=== PATIENT | male | born 1935 | race Caucasian/White ===

== ENCOUNTER 2017-01-05 19:30 | Inpatient (IN) ==
[~2017-01-05 19:30] MED LIST: ALBUTEROL 2.5 MG/3 ML NEB RESP TX PRN
--- NOTE | 2017-01-05 20:07 | XRay Report ---
XR chest 1V portable Indication: SOB Comparison: Chest x-ray dated October 20, 2016 Technique: Single frontal view of the chest. Findings: Endotracheal tube tip proximally 2.7 cm above the sydnie. Continued cardiomegaly status post sternotomy. Diffuse hazy bilateral pulmonary opacification suspicious for pulmonary edema or pneumonia. Small left pleural effusion. Suspect small right layering pleural fluid. Constellation of findings favors CHF. Visualized osseous and surrounding soft tissue structures appear grossly unchanged. IMPRESSION: As above. PROCEDURE INTERPRETED AT [facility] DEPARTMENT OF RADIOLOGY Final Report Signed by: Dr Robert Trivedi
[2017-01-05] MEDS ORDERED: SODIUM CHLORIDE 0.9% 2,700 ML IV ONE ×2 (20:39)
[2017-01-05] MEDS ORDERED: GLUCAGON 1 MG VIAL IM PRN (20:39)
[2017-01-05] MEDS ORDERED: DEXTROSE 50% 25 GM/50 ML VIAL IV PRN (20:39)
[2017-01-05 20:42] LABS: ABG Base Excess -3.1 MMOL/L (-2.5-2.5); ABG HCO3 21.8 MMOL/L (20-26); ABG Oxygen Saturation 99.2 % (95-100); ABG PCO2 44.8 MM HG (35-48); ABG PH 7.322 (7.35-7.45); ABG TCO2 20.2 MMOL/L (23-27)
[2017-01-05 20:59] LABS: Basophils % 0.2 % (0.0-0.8); Eosinophils % 0.3 % (0.00-10.9); Hematocrit 43.5 VOL% (42.0-52.0); Hemoglobin 14.1 GM/DL (14.0-18.0); Immature Granulocytes % 0.4 %; Immature Granulocytes Absolute 0.05 #; Lymphocytes # 0.4 10*3/uL (1.4-4.0); Lymphocytes % 3.9 % (21.2-54.2); Mean Corpuscular HGB Conc 32.4 GM/DL (32-36); Mean Corpuscular Hemoglobin 29 PG (27-34); Mean Corpuscular Volume 90.8 FL (87-102); Mean Platelet Volume 12.9 FL (9.6-12.0); Monocytes # 0.7 10*3/uL (0.11-0.8); Monocytes % 6.4 % (1.7-12.7); Neutrophils # 9.9 10*3/uL (1.4-7.4); Neutrophils % 88.8 % (38.7-73.9); Platelet Count 222 T/CUMM (130-400); Red Blood Count 4.79 MC/CUMM (3.8-5.5); Red Cell Distribution Width 15.6 % (9.3-17.3); White Blood Count 11.2 T/CUMM (4-12)
[2017-01-05] MEDS: PROPOFOL 1,000 MG/100 ML BOTTLE IV SCH (21:00)
[2017-01-05] MEDS: NOREPINEPHRINE 8 MG in SODIUM CHLORIDE 0.9% 242 ML IV SCH (21:00)
[2017-01-05] MEDS: PIPERACILLIN/TAZOBACTAM 3,375 MG in SODIUM CHLORIDE 0.9% 100 ML IV SCH (21:18)
[2017-01-05] MEDS: FAMOTIDINE 20 MG/2 ML VIAL IV SCH (21:18)
[2017-01-05] MEDS: ENOXAPARIN 40 MG/0.4 ML SYRINGE SUBCUT SCH (21:19)
--- NOTE | 2017-01-05 21:24 | Hospitalist History & Physical ---
Assessment and Plan (1) Septic shock Status: Acute Current Visit: Yes (2) Aspiration pneumonia Status: Acute Current Visit: Yes (3) Respiratory failure Status: Acute Current Visit: Yes (4) Hypertension Status: Chronic Current Visit: No (5) Seizure disorder Status: Chronic Current Visit: No (6) Type I diabetes mellitus Status: Acute Current Visit: No Qualifiers: Diabetes mellitus complication status: with neurologic complications Diabetes mellitus complication detail: with polyneuropathy Qualified Code(s): E10.42 - Type 1 diabetes mellitus with diabetic polyneuropathy (7) Pulmonary hypertension Status: Chronic Assessment and plan: Patient appears to be in septic shock. I am going to bolus him with IV fluids. Broad old antibiotic coverage including Levaquin and Zosyn. I suspect that he has had a drug interaction and aspirated. Will get pulmonary involved and they can help guide the ventilator. Pressors as needed. Should be able to restart some home medications tomorrow. Patient is hypotensive I will switch him over from dopamine to Levophed. I discussed CODE STATUS with his . She wants us to aggressively treat him but not to code him. Since he is on pressors and is on the ventilator I am going to make him a DO NOT RESUSCITATE at this point. But my plans would be to increase the pressors if needed but no CPR will be given to the patient. Current Visit: No History of Present Illness Chief complaint: Transfer from outside facility History of present illness: Mr. 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 Patient is on multiple medications. He has been on Lyrica Embeda Tegretol and oxycodone for breakdown pain said this was the first time that he really got started on all these medications because he ran out of his Embeda. She said this morning he was very hard to wake up. She finally did get him to wake up and he wanted to eat. She got him some food. And he just was not acting right. He did not 8 at that time said he was not hungry. Patient's checked on him later and found him blue and pale in the chair. He could not talk or open up his eyes. She takes his blood pressure and it was systolic in the 50s. EMS was called. It appeared he had vomited on himself. When EMS got there they gave him some fluids and propped him up and the color returned. He was taken to [facility]. Apparently at some point he stopped breathing. And had to be intubated at their facility. I accept the patient as transfer from the emergency room. Home Medications Medication Instructions Recorded Confirmed Type Allopurinol [Zyloprim] 300 mg PO DAILY 02/17/15 10/16/16 History Gabapentin Cap/Tab [Neurontin 300 mg PO 0900,1500 02/17/15 10/16/16 History Cap/Tab] Gabapentin Cap/Tab [Neurontin 900 mg PO BEDTIME 02/17/15 10/16/16 History Cap/Tab] Ramipril [Altace] 10 mg PO DAILY 02/17/15 10/16/16 History Tamsulosin [Flomax] 0.4 mg PO BID 02/17/15 10/16/16 History levETIRAcetam TAB [Keppra Tab] 750 mg PO BID 02/17/15 10/16/16 History Hydrocortisone 2.5% Cream 1 applic TOP BID PRN #0 cream 02/21/15 10/16/16 Rx hydrOXYzine HCL TAB [Atarax Tab] 25 mg PO Q6H PRN #0 tablet 02/27/15 10/16/16 Rx Insulin Lispro Prot/Lisp 75/25 40 unit SUBCUT QAM 10/16/16 10/16/16 History [HumaLOG Mix 75/25] Insulin Lispro Prot/Lisp 75/25 50 unit SUBCUT QPM 10/16/16 10/16/16 History [HumaLOG Mix 75/25] Levothyroxine Tab [Synthroid Tab] 88 mcg PO DAILY@0700 10/16/16 10/16/16 History Morphine Sulfate/Naltrexone 1 capsule PO BID 10/16/16 10/16/16 History [Embeda 80/3.2] Omeprazole [Prilosec] 40 mg PO DAILY 10/16/16 10/16/16 History diphenhydrAMINE CAP [Benadryl Cap] 50 mg PO Q6H PRN 10/16/16 10/16/16 History oxyCODONE IR [Roxicodone] 15 mg PO Q8H 10/16/16 10/16/16 History Cefdinir [Omnicef] 300 mg PO BID #4 capsule 10/21/16 Rx Doxycycline Hyclate Cap 100 mg PO BID #4 capsule 10/21/16 Rx [Vibramycin Cap] Furosemide Tab [Lasix Tab] 20 mg PO DAILY #30 tablet 10/21/16 Rx Allergies Allergy/AdvReac Type Severity Reaction Status Date / Time codeine Allergy Unknown/Unable Verified 02/17/15 04:40 to obtain Sulfa (Sulfonamide Allergy Unknown/Unable Verified 01/05/17 20:12 Antibiotics) to obtain Medical,Surgical,& Family Hx - Medical History Cardio: History of: Cardiac Dysrhythmia (atrial fibrillation - spouse denies), CAD, Hypertension, [place] Endocrine: History of: Diabetes Mellitus (IDDM), Thyroid Disorder Comment Only: Endocrine Problems (Neuropathy) Rheumatology: History of;: Gout Respiratory: History of: Obstructive Sleep Apnea (wears CPAP) Genitourinary: History of: Prostate Problems Gastrointestinal: History of: GERD Musculoskeletal: History of: Back/Neck Problems (Bad neck) Other: History of: Miscellaneous Medical Problems (neuropathy, gout) - Surgical History Abdominal Surgeries: Surgical HX of: Abdominal Surgery, Cholecystectomy Orthopedic Surgeries: Surgical HX of;: Orthopedic Surgery - Family History Family History: Reports;: Family Cancer, Family Hypertension - Social History Smoking Status: Unknown if ever smoked ROS unobtainable: due to endotracheal tube Exam - Constitutional General appearance: normal weight - Head Head exam: Present: normal inspection - Eye Pupils: Present: GUANACO (Sluggish) - ENT ENT exam: Present: other (ET tube in place) - Neck Neck exam: Present: normal inspection - Respiratory Respiratory exam: Present: rhonchi - Cardiovascular Cardiovascular exam: Present: tachycardia - GI/Abdominal GI/Abdominal exam: Present: hypoactive bowel sounds - Extremities Exam Extremities exam: Present: normal inspection - Back Exam Back exam: Present: normal inspection - Neurological Exam Neurological exam: Present: other (Sedated on the vent) - Skin Skin exam: Present: normal color Results - Labs CBC & BMP: 01/05/17 20:32
[2017-01-05 21:26] LABS: Albumin 3.7 G/DL (3.4-5.0); Bilirubin,Total 1.2 MG/DL (0.2-1.0); Calcium 9.6 MG/DL (8.5-10.1); Magnesium 2.3 MG/DL (1.8-2.4); Osmolality,Calculated 286.7 MOS/KG (273-304); Potassium 3.6 MMOL/L (3.5-5.1); Total Protein 7.9 G/DL (6.4-8.3)
[2017-01-05] MEDS: SODIUM CHLORIDE 0.9% 1,000 ML IV SCH (21:28)
[2017-01-05 21:58] LABS: Band Neutrophils 1 % (0-10); Lymphocytes 2 % (20-55); Platelet Estimate Adequate; Segmented Neutrophils 90 % (50-85); Total Cells Counted 100
[2017-01-05 22:32] LABS: Apearance,Urine CLEAR (Clear); Bilirubin,Urine Negative (Negative); Blood, Urine Moderate mg/dL (Negative); Glucose,Urine (UA) Negative (Negative); Hyaline Casts,Urine 12 /LPF (0-3); Ketones,Urine 5 mg/dL (Negative); Nitrite,Urine Negative (Negative); Protein,Urine Negative; RBC,Urine 23 /HPF (0-4); Urine Color Yellow (Yellow); Urine Specific Gravity 1.009 (1.001-1.035); Urine Urobilinogen < 2.0 EU/DL (0.2-1.0); WBC,Urine 3 /HPF (0-6)
[2017-01-06] MEDS: INSULIN REGULAR 100 UNIT/ML SUBCUT SCH ×6 (01:09→23:44)
[2017-01-06 03:20] LABS: Pt O2 Delivery Device Ventilator
[2017-01-06 03:21] LABS: ABG Base Excess -2.6 MMOL/L (-2.5-2.5); ABG HCO3 22.3 MMOL/L (20-26); ABG Oxygen Saturation 99.8 % (95-100); ABG PCO2 33.5 MM HG (35-48); ABG PH 7.411 (7.35-7.45)
[2017-01-06 04:17] LABS: Basophils % 0.1 % (0.0-0.8); Hematocrit 40.7 VOL% (42.0-52.0); Immature Granulocytes % 0.2 %; Immature Granulocytes Absolute 0.02 #; Lymphocytes # 0.6 10*3/uL (1.4-4.0); Lymphocytes % 6.1 % (21.2-54.2); Mean Corpuscular HGB Conc 31.9 GM/DL (32-36); Mean Corpuscular Hemoglobin 29 PG (27-34); Mean Corpuscular Volume 91.5 FL (87-102); Mean Platelet Volume 12.4 FL (9.6-12.0); Monocytes # 0.7 10*3/uL (0.11-0.8); Monocytes % 7.5 % (1.7-12.7); Neutrophils # 8.3 10*3/uL (1.4-7.4); Neutrophils % 86.1 % (38.7-73.9); Platelet Count 182 T/CUMM (130-400); Red Blood Count 4.45 MC/CUMM (3.8-5.5); Red Cell Distribution Width 15.8 % (9.3-17.3); White Blood Count 9.7 T/CUMM (4-12)
[2017-01-06 04:49] LABS: Band Neutrophils 3 % (0-10); Bilirubin,Total 1.2 MG/DL (0.2-1.0); Calcium 9.1 MG/DL (8.5-10.1); Lymphocytes 9 % (20-55); Myelocytes 1 %; Osmolality,Calculated 290.3 MOS/KG (273-304); Segmented Neutrophils 84 % (50-85); Total Protein 6.6 G/DL (6.4-8.3)
[2017-01-06 04:50] LABS: Elliptocytes Few; Ovalocytes 1+
[2017-01-06 04:51] LABS: Platelet Estimate Normal; Total Cells Counted 100
[2017-01-06] MEDS: SODIUM CHLORIDE 0.9% 1,000 ML IV SCH ×2 (05:59→16:45)
[2017-01-06] MEDS: PIPERACILLIN/TAZOBACTAM 3,375 MG in SODIUM CHLORIDE 0.9% 100 ML IV SCH ×3 (05:59→20:21)
[2017-01-06] MEDS ORDERED: NOREPINEPHRINE 4 MG/4 ML VIAL IV ONE ×2 (06:51→06:52)
[2017-01-06] MEDS: NOREPINEPHRINE 8 MG in SODIUM CHLORIDE 0.9% 242 ML IV SCH ×2 (07:00→21:00)
--- NOTE | 2017-01-06 07:45 | Pulmonology Consult Note ---
Assessment and Plan (1) Hypertension Status: Chronic Assessment and plan: The patient has had labile blood pressure but it is a little more stable now. He is still requiring low-dose Levophed. Current Visit: No (2) Type I diabetes mellitus Status: Acute Assessment and plan: The patient has severe diabetes with diabetic neuropathy. Current Visit: No Qualifiers: Diabetes mellitus complication status: with neurologic complications Diabetes mellitus complication detail: with polyneuropathy Qualified Code(s): E10.42 - Type 1 diabetes mellitus with diabetic polyneuropathy (3) Septic shock Status: Acute Assessment and plan: Patient is getting fluids and antibiotics at the present time. Current Visit: Yes (4) Aspiration pneumonia Status: Acute Assessment and plan: Patient's oxygenation is better but he does have bilateral infiltrates. Will continue antibiotic therapy. Current Visit: Yes (5) Respiratory failure Status: Acute Assessment and plan: The patient is on the ventilator with respiratory failure. Will lower his FiO2 and continue support Current Visit: Yes History of Present Illness Chief complaint: Ventilator management History of present illness: Mr. Jimenez is a 81 year old white male that is followed by Dr. Soria in [place]. The patient has a history of heart disease and has had previous heart surgery. He has hypertension and diabetes and severe diabetic neuropathy. He wears CPAP at night for sleep apnea. He has had a lot of chronic pain issues. Yesterday apparently he was very hard to arouse and has had problems like this before. He has had a labile blood pressure. Yesterday he was poorly responsive and looks like he may have vomited and aspirated. He was taken to [facility] and was intubated. He is now transferred and admitted to the ICU. He has been requiring Levophed and is getting a large volume of fluid Home Medications Medication Instructions Recorded Confirmed Type Allopurinol [Zyloprim] 300 mg PO DAILY 02/17/15 01/05/17 History Gabapentin Cap/Tab [Neurontin 300 mg PO 0900,1500 02/17/15 10/16/16 History Cap/Tab] Gabapentin Cap/Tab [Neurontin 900 mg PO BEDTIME 02/17/15 10/16/16 History Cap/Tab] Ramipril [Altace] 2.5 mg PO DAILY 02/17/15 01/05/17 History Tamsulosin [Flomax] 0.4 mg PO BID 02/17/15 01/05/17 History levETIRAcetam TAB [Keppra Tab] 750 mg PO BID 02/17/15 01/05/17 History Hydrocortisone 2.5% Cream 1 applic TOP BID PRN #0 cream 02/21/15 01/05/17 Rx hydrOXYzine HCL TAB [Atarax Tab] 25 mg PO Q6H PRN #0 tablet 02/27/15 01/05/17 Rx Insulin Lispro Prot/Lisp 75/25 40 unit SUBCUT QAM 10/16/16 01/05/17 History [HumaLOG Mix 75/25] Insulin Lispro Prot/Lisp 75/25 50 unit SUBCUT QPM 10/16/16 01/05/17 History [HumaLOG Mix 75/25] Levothyroxine Tab [Synthroid Tab] 75 mcg PO DAILY@0700 10/16/16 01/05/17 History Morphine Sulfate/Naltrexone 1 capsule PO BID 10/16/16 01/05/17 History [Embeda 80/3.2] Omeprazole [Prilosec] 40 mg PO DAILY 10/16/16 01/05/17 History diphenhydrAMINE CAP [Benadryl Cap] 50 mg PO Q6H PRN 10/16/16 10/16/16 History oxyCODONE IR [Roxicodone] 20 mg PO TID 10/16/16 01/05/17 History Cefdinir [Omnicef] 300 mg PO BID #4 capsule 10/21/16 Rx Doxycycline Hyclate Cap 100 mg PO BID #4 capsule 10/21/16 Rx [Vibramycin Cap] Furosemide Tab [Lasix Tab] 80 mg PO DAILY 01/05/17 01/05/17 History Pregabalin [Lyrica] 75 mg PO BID 01/05/17 01/05/17 History carBAMazepine [Carbamazepine] 200 mg PO BID 01/05/17 01/05/17 History Allergies Allergy/AdvReac Type Severity Reaction Status Date / Time codeine Allergy Unknown/Unable Verified 02/17/15 04:40 to obtain Sulfa (Sulfonamide Allergy Unknown/Unable Verified 01/05/17 20:12 Antibiotics) to obtain ROS unobtainable: due to endotracheal tube (Patient is on the ventilator and unable to give a history.) Exam (Pulmonay) H&P - Constitutional Vitals: Period Temp Pulse Resp BP Sys/Crocker Pulse Ox Last 24 Hr 97.1 F-97.6 F 60-131 14-42 74-141/43-88 96-100 General appearance: normal weight, no acute distress (Patient is sedated on the ventilator.) - Head Head exam: Present: normal inspection, normocephalic - Eye Eye exam: Present: EOMI. Absent: scleral icterus Pupils: Present: GUANACO - ENT ENT exam: Present: normal exam, other (ET tube is in good position) - Neck Neck exam: Present: normal inspection. Absent: lymphadenopathy, thyromegaly - Respiratory Respiratory exam: Present: rhonchi, other (He has good breath sounds bilaterally with some rhonchi.) - Cardiovascular Cardiovascular exam: Present: regular rate and rhythm, tachycardia. Absent: gallop, systolic murmur - GI/Abdominal GI/Abdominal exam: Present: normal bowel sounds, tenderness (He does have some mild abdominal tenderness to palpation.), soft. Absent: organomegaly - Extremities Exam Extremities exam: Absent: calf tenderness, edema - Neurological Exam Neurological exam: Present: altered (He is mainly sedated at present.) - Psychiatric Psychiatric exam: Absent: anxious - Skin Skin exam: Present: warm, dry Medical,Surgical,& Family Hx - Medical History Cardio: History of: Cardiac Dysrhythmia (atrial fibrillation - spouse denies), CAD, Hypertension, [place], Pacemaker (Battery replaced 2014) Neurology: History of: Cerebrovascular Accident, Seizures Endocrine: History of: Diabetes Mellitus (IDDM), Thyroid Disorder Comment Only: Endocrine Problems (Neuropathy) Rheumatology: History of;: Gout Respiratory: History of: Obstructive Sleep Apnea (wears CPAP) Genitourinary: History of: Prostate Problems Gastrointestinal: History of: GERD, GI Problems (Esophagus sx in 1991 [facility]) Musculoskeletal: History of: Back/Neck Problems (Bad neck) Other: History of: Miscellaneous Medical Problems (neuropathy, gout) - Surgical History Cardiac Surgeries: Sugical HX of: Cardiac Catheterization (Stents in 1999), Cardiac Surgery (Quadruple bypass 2005) Abdominal Surgeries: Surgical HX of: Abdominal Surgery, Cholecystectomy Orthopedic Surgeries: Surgical HX of;: Orthopedic Surgery - Family History Family History: Reports;: Family Cancer, Family Hypertension - Social History Smoking Status: Unknown if ever smoked Frequency of Alcohol Use: None Type of Drug Use: None Results - Labs CBC & BMP: 01/06/17 03:58 01/06/17 03:58 Labs: PO2 is 299 with a PCO2 of 33 and a pH of 7.41 - Diagnostic Findings Procedure: Chest x-ray: image reviewed by me, report reviewed by me (Chest x- ray does suggest bibasilar pneumonia )
[2017-01-06] MEDS: oxyCODONE IR 5 MG TABLET PO PRN ×2 (07:48→13:35)
--- NOTE | 2017-01-06 08:04 | XRay Report ---
History is short of breath, ventilator management Comparison 01/05/2017 The heart is enlarged. ET tube tip is 1.5 cm above the sydnie. Pacemaker present with scoliotic prior median sternotomy. NG tube traverses the chest There has been development of a small, just under 10% pneumothorax on the right. There is question of an anterior pneumothorax in the left as well The diffuse pulmonary edema is slightly improved in the interval. There remains more focal consolidation and effusion obscuring the left diaphragm. Findings personally discussed with the patient's nurse at 8:00 AM Impression: 1. Interval development of a small right pneumothorax 2. Suspected anterior pneumothorax in the left 3. slight improvement with continued diffuse pulmonary edema PROCEDURE INTERPRETED AT [facility] DEPARTMENT OF RADIOLOGY Final Report Signed by: Dr. Sandy Obrien
[2017-01-06] MEDS: FAMOTIDINE 20 MG/2 ML VIAL IV SCH ×2 (09:15→20:21)
[2017-01-06] MEDS: PROPOFOL 1,000 MG/100 ML BOTTLE IV SCH (09:16)
--- NOTE | 2017-01-06 12:18 | Ultrasound Report ---
Ultrasound of the right upper quadrant. Indication: Generalized abdominal pain. Right upper quadrant pain. The liver is normal in size. The parenchymal echogenicity is normal. No focal liver lesions are identified. The gallbladder has been removed. The common duct measures 3.6 mm. Portions of the pancreas are secured by bowel gas. Visualized portions appear normal. The right kidney has a normal appearance. There is a right-sided pleural effusion. Impression: Right pleural effusion. Otherwise, the exam is unremarkable. PROCEDURE INTERPRETED AT [facility] DEPARTMENT OF RADIOLOGY Final Report Signed by: Dr. Jessie Obrien
--- NOTE | 2017-01-06 12:32 | XRay Report ---
History is follow-up pneumothorax Chest one view 01/06/2017 at 12:03 PM A small less than 10% right pneumothorax remains but is slightly improved in the interval. The previously question anterior pneumothorax in the left is a less apparent on the current film The cardiomegaly and pacemaker remains. ET tube tip remains at T5 Moderate diffuse bilateral pulmonary opacities and mildly more focal consolidation left lower lobe again seen with underlying small effusions Impression: Interval decrease in size of the small right apical pneumothorax PROCEDURE INTERPRETED AT [facility] DEPARTMENT OF RADIOLOGY Final Report Signed by: Dr. Sandy Obrien
--- NOTE | 2017-01-06 12:34 | XRay Report ---
History is abdominal pain Mild air scattered in the bowel without small bowel loops measuring up to 2 cm. No organomegaly seen Pelvic phleboliths present Clips present in the upper abdomen. NG tube tip is just past the GE junction. Impression: 1. Presumed NG tube the tip just past the GE junction 2. Nonspecific bowel gas pattern PROCEDURE INTERPRETED AT [facility] DEPARTMENT OF RADIOLOGY Final Report Signed by: Dr. Sandy Obrien
--- NOTE | 2017-01-06 15:13 | Hospitalist Progress Note ---
Assessment and Plan - Time spent with patient Time spent with patient: Greater than 30 minutes (1) Aspiration pneumonia Status: Acute Assessment and plan: Continue IV antibiotics and ventilator support. Pulmonary following. Current Visit: Yes Qualifiers: Aspiration pneumonia type: due to vomit Laterality: bilateral Lung location: lower lobe of lung Qualified Code(s): J69.0 - Pneumonitis due to inhalation of food and vomit (2) Respiratory failure Status: Acute Assessment and plan: Continue ventilatory support. Pulmonary following Current Visit: Yes Qualifiers: Chronicity: acute Respiratory failure complication: hypoxia Qualified Code(s): J96.01 - Acute respiratory failure with hypoxia (3) Septic shock Status: Acute Assessment and plan: IV fluids and IV antibiotics initiated. Elevated lactic acid level noted Current Visit: Yes (4) Neuropathy Status: Chronic Assessment and plan: Continue home medications. Current Visit: Yes (5) Cerebellar ataxia Status: Chronic Current Visit: Yes (6) Debility Status: Chronic Current Visit: No (7) Type 2 diabetes mellitus Status: Chronic Current Visit: Yes (8) Hypertension Status: Chronic Current Visit: Yes Qualifiers: Hypertension type: essential hypertension Qualified Code(s): I10 - Essential (primary) hypertension (9) Seizure disorder Status: Chronic Current Visit: No (10) DAV (acute kidney injury) Status: Acute Assessment and plan: Secondary to sepsis and hypotension. Current Visit: Yes Hospitalist: Subjective Interval history: Patient seen and examined. No acute events overnight. Case discussed with nursing staff. Labs reviewed. The case was discussed with the patient's and [id number] at the bedside at length. Mr. Jimenez is a 81 year old white male that is followed by Dr. Soria in [place]. The patient has a history of heart disease and has had previous heart surgery. He has hypertension and diabetes and severe diabetic neuropathy. He wears CPAP at night for sleep apnea. He has had a lot of chronic pain issues. Yesterday apparently he was very hard to arouse and has had problems like this before. He has had a labile blood pressure. Yesterday he was poorly responsive and looks like he may have vomited and aspirated. He was taken to [facility] and was intubated. He is now transferred and admitted to the ICU. He has been requiring Levophed and is getting a large volume of fluid Exam - Constitutional Vitals: Period Temp Pulse Resp BP Sys/Crocker Pulse Ox Last 24 Hr 97.1 F-99.1 F 60-131 14-42 72-141/43-88 96-100 Exam: General appearance: normal weight, no acute distress (Patient is sedated on the ventilator.) - Head Head exam: Present: normal inspection, normocephalic - Eye Eye exam: Present: EOMI. Absent: scleral icterus Pupils: Present: GUANACO - ENT ENT exam: Present: normal exam, other (ET tube is in good position) - Neck Neck exam: Present: normal inspection. Absent: lymphadenopathy, thyromegaly - Respiratory Respiratory exam: Present: rhonchi, other (He has good breath sounds bilaterally with some rhonchi.) - Cardiovascular Cardiovascular exam: Present: regular rate and rhythm, tachycardia. Absent: gallop, systolic murmur - GI/Abdominal GI/Abdominal exam: Present: normal bowel sounds, tenderness (He does have some mild abdominal tenderness to palpation.), soft. Absent: organomegaly - Extremities Exam Extremities exam: Absent: calf tenderness, edema - Neurological Exam Neurological exam: Present: altered (He is mainly sedated at present.) - Psychiatric Psychiatric exam: Unable to obtain secondary to patient's sedation - Skin Skin exam: Present: warm, dry Results - Labs CBC & BMP: 01/06/17 03:58 01/06/17 03:58 Lab Results: I have reviewed the past 24 hour labs - Diagnostic Findings Procedure: Chest x-ray: image reviewed by me, report reviewed by me, KUB x-ray: image reviewed by me, report reviewed by me, Ultrasound: report reviewed by me
[2017-01-06] MEDS ORDERED: hydrOXYzine HCL 25 MG TABLET PO PRN (15:37)
[2017-01-06] MEDS ORDERED: HYDROCORTISONE 2.5% CREAM 30 GM TUBE TOP PRN (15:37)
[2017-01-06] MEDS: LEVOFLOXACIN INJ 750 MG in PREMIX 1 EACH IV SCH (18:38)
[2017-01-06] MEDS ORDERED: INSULIN LISPRO PROTAMINE/LISPRO 75/25 100 UNIT/ML SUBCUT SCH (19:00)
[2017-01-06] MEDS ORDERED: ONDANSETRON 4 MG/2 ML VIAL IV PRN (19:49)
[2017-01-06] MEDS: GABAPENTIN 300 MG CAPSULE PO SCH (20:19)
[2017-01-06] MEDS: PREGABALIN 75 MG CAPSULE PO SCH (20:20)
[2017-01-06] MEDS: levETIRAcetam 250 MG TABLET PO SCH (20:20)
[2017-01-06] MEDS: oxyCODONE IR 5 MG TABLET PO SCH (20:20)
[2017-01-06] MEDS: ENOXAPARIN 40 MG/0.4 ML SYRINGE SUBCUT SCH (20:21)
[2017-01-06] MEDS: carBAMazepine 200 MG TABLET PO SCH (20:26)
[2017-01-06] MEDS ORDERED: NALTREXONE PO SCH (21:00)
[2017-01-06] MEDS ORDERED: MORPHINE SULFATE PO SCH (21:00)
[2017-01-07] MEDS: PROPOFOL 1,000 MG/100 ML BOTTLE IV SCH ×2 (00:51→21:00)
[2017-01-07] MEDS: PIPERACILLIN/TAZOBACTAM 3,375 MG in SODIUM CHLORIDE 0.9% 100 ML IV SCH ×3 (06:00→20:06)
[2017-01-07 06:28] LABS: Calcium 8.2 MG/DL (8.5-10.1); Magnesium 2.3 MG/DL (1.8-2.4); Osmolality,Calculated 298.7 MOS/KG (273-304); Phosphorous 2.8 MG/DL (2.5-4.9); Potassium 3.5 MMOL/L (3.5-5.1); Prealbumin 16.8 MG/DL (20-40)
[2017-01-07] MEDS: LEVOTHYROXINE 75 MCG TABLET PO SCH (06:45)
[2017-01-07] MEDS: INSULIN REGULAR 100 UNIT/ML SUBCUT SCH ×3 (07:16→17:24)
[2017-01-07] MEDS: SODIUM CHLORIDE 0.9% 1,000 ML IV SCH ×3 (07:17→22:19)
--- NOTE | 2017-01-07 08:00 | XRay Report ---
XR chest 1V portable Indication: Pneumonia, right pneumonia Comparison: Chest x-ray dated January 06, 2017 12:03 PM Technique: Single frontal view of the chest. Findings: Endotracheal tube stable in positioning. Continued cardiomegaly status post sternotomy. Continued bilateral pulmonary opacification which has not significantly changed considering change in technique. Continued bilateral pleural fluid. Continued right apical pneumothorax. Visualized osseous and surrounding soft tissue structures appear grossly unchanged. IMPRESSION: No significant interval change. PROCEDURE INTERPRETED AT [facility] DEPARTMENT OF RADIOLOGY Final Report Signed by: Dr Robert Trivedi
[2017-01-07] MEDS: FAMOTIDINE 20 MG/2 ML VIAL IV SCH ×2 (08:51→20:06)
[2017-01-07] MEDS: PREGABALIN 75 MG CAPSULE PO SCH ×2 (08:53→20:06)
[2017-01-07] MEDS: levETIRAcetam 250 MG TABLET PO SCH ×2 (08:53→20:06)
[2017-01-07] MEDS: oxyCODONE IR 5 MG TABLET PO SCH ×3 (08:53→20:06)
[2017-01-07] MEDS: ALLOPURINOL 300 MG TABLET PO SCH (08:53)
[2017-01-07] MEDS: GABAPENTIN 300 MG CAPSULE PO SCH ×3 (08:53→20:33)
[2017-01-07] MEDS: PANTOPRAZOLE 40 MG TABLET PO SCH (08:54)
[2017-01-07] MEDS ORDERED: INSULIN LISPRO PROTAMINE/LISPRO 75/25 100 UNIT/ML SUBCUT SCH (09:00)
--- NOTE | 2017-01-07 09:02 | Hospitalist Progress Note ---
Assessment and Plan (1) Aspiration pneumonia Status: Acute Assessment and plan: Continue IV antibiotics and ventilator support. Pulmonary following. Continue Zosyn and Levaquin. Current Visit: Yes Qualifiers: Aspiration pneumonia type: due to vomit Laterality: bilateral Lung location: lower lobe of lung Qualified Code(s): J69.0 - Pneumonitis due to inhalation of food and vomit (2) Respiratory failure Status: Acute Assessment and plan: Continue ventilatory support. Pulmonary following Current Visit: Yes Qualifiers: Chronicity: acute Respiratory failure complication: hypoxia Qualified Code(s): J96.01 - Acute respiratory failure with hypoxia (3) Septic shock Status: Acute Assessment and plan: IV fluids and IV antibiotics initiated. Elevated lactic acid level noted Current Visit: Yes (4) Neuropathy Status: Chronic Assessment and plan: Continue home medications. Current Visit: Yes (5) Cerebellar ataxia Status: Chronic Current Visit: Yes (6) Debility Status: Chronic Current Visit: No (7) Type 2 diabetes mellitus Status: Chronic Current Visit: Yes (8) Hypertension Status: Chronic Current Visit: Yes Qualifiers: Hypertension type: essential hypertension Qualified Code(s): I10 - Essential (primary) hypertension (9) Seizure disorder Status: Chronic Current Visit: No (10) DAV (acute kidney injury) Status: Acute Assessment and plan: Secondary to sepsis and hypotension. Current Visit: Yes Hospitalist: Subjective Interval history: Patient seen and examined. Daughter at the bedside. He was admitted with bilateral pneumonia likely aspiration after being found unresponsive at home. He is still requiring low-dose Levophed. Urine output is adequate. Continue IV antibiotics. Slowly improving. Exam - Constitutional Vitals: Period Temp Pulse Resp BP Sys/Crocker Pulse Ox Last 24 Hr 97.9 F-99.1 F 60-94 14-24 76-143/45-78 97-100 Exam: Constitutional System: Mild distress. No tremulousness. Intubated and sedated. Head: Normocephalic, atraumatic. Ears, Nose and Throat System: No pain or tenderness. No epistaxis or discharge Eyes System: Pupils equal, round, and reactive. Extraocular muscles intact. Neck: Supple, without adenopathy, No jugular venous distention. No thyromegaly, neck mass, or prior surgery apparent. Respiratory System: Chest clear to auscultation. Cardiovascular System: Heart with regular rate and rhythm. No murmur. GI System: Abdomen soft, nontender. Normo active bowel sounds present. Musculoskeletal System: limbs with no pedal edema. Full distal pulses. Neurological System: Patient is sedated Results - Labs CBC & BMP: 01/06/17 03:58 01/07/17 04:26 Lab Results: I have reviewed the past 24 hour labs
--- NOTE | 2017-01-07 10:29 | Pulmonology Progress Note ---
Pulmonary - PN: Subj Interval history: Patient is an 81-year-old white man that has numerous problems. He does have a history of heart disease along with diabetes and hypertension and diabetic neuropathy. He does take a lot of medicines. He was found poorly responsive and may have aspirated. He is on the ventilator and looks like he has pneumonia. He came in somewhat shocky and has been getting fluids and pressures. He is doing a little better at present. Exam (Progress Note) - Constitutional Vitals: Period Temp Pulse Resp BP Sys/Crocker Pulse Ox Last 24 Hr 97.9 F-99.1 F 60-94 14-32 76-143/45-78 97-100 Exam: General appearance: normal weight, no acute distress (Patient is sedated on the ventilator. He looks comfortable on the ventilator.) - Head Head exam: Present: normal inspection, normocephalic - Eye Eye exam: Present: EOMI. Absent: scleral icterus Pupils: Present: GUANACO - ENT ENT exam: Present: normal exam, other (ET tube is in good position) - Neck Neck exam: Present: normal inspection. Absent: lymphadenopathy, thyromegaly - Respiratory Respiratory exam: Present: He has good breath sounds bilaterally with some mild rhonchi present. - Cardiovascular Cardiovascular exam: Present: regular rate and rhythm, tachycardia. Absent: gallop, systolic murmur - GI/Abdominal GI/Abdominal exam: Present: normal bowel sounds, tenderness (He does have some mild abdominal tenderness to palpation.), soft. Absent: organomegaly - Extremities Exam Extremities exam: Absent: calf tenderness, edema - Neurological Exam Neurological exam: Present: altered (He is mainly sedated at present.) - Psychiatric Psychiatric exam: Absent: anxious - Skin Skin exam: Present: warm, dry Results - Labs CBC & BMP: 01/06/17 03:58 01/07/17 04:26 - Diagnostic Findings Procedure: Chest x-ray: image reviewed by me, report reviewed by me (Chest x- ray still shows bilateral infiltrates. A small right apical pneumothorax is unchanged. X-ray is stable.) Assessment and Plan (1) Hypertension Status: Chronic Assessment and plan: The patient has had labile blood pressure but it is a little more stable now. He is still requiring low-dose Levophed. Current Visit: Yes Qualifiers: Hypertension type: essential hypertension Qualified Code(s): I10 - Essential (primary) hypertension (2) Type I diabetes mellitus Status: Acute Assessment and plan: The patient has severe diabetes with diabetic neuropathy. Current Visit: No Qualifiers: Diabetes mellitus complication status: with neurologic complications Diabetes mellitus complication detail: with polyneuropathy Qualified Code(s): E10.42 - Type 1 diabetes mellitus with diabetic polyneuropathy (3) Septic shock Status: Acute Assessment and plan: Patient is getting fluids and antibiotics at the present time. His blood pressure is better at present and his urine output has improved. Current Visit: Yes (4) Aspiration pneumonia Status: Acute Assessment and plan: Patient's oxygenation is better but he does have bilateral infiltrates. Will continue antibiotic therapy. We will try to lower his FiO2. He may need a bronchoscope if his infiltrates do not clear. Current Visit: Yes Qualifiers: Aspiration pneumonia type: due to vomit Laterality: bilateral Lung location: lower lobe of lung Qualified Code(s): J69.0 - Pneumonitis due to inhalation of food and vomit (5) Respiratory failure Status: Acute Assessment and plan: The patient is on the ventilator with respiratory failure. Will lower his FiO2 and continue support. He is not ready to wean yet. Current Visit: Yes Qualifiers: Chronicity: acute Respiratory failure complication: hypoxia Qualified Code(s): J96.01 - Acute respiratory failure with hypoxia
[2017-01-07] MEDS: carBAMazepine 200 MG TABLET PO SCH ×2 (10:36→20:06)
[2017-01-07] MEDS: LEVOFLOXACIN INJ 750 MG in PREMIX 1 EACH IV SCH (18:01)
[2017-01-07] MEDS: ENOXAPARIN 40 MG/0.4 ML SYRINGE SUBCUT SCH (20:07)
[2017-01-07] MEDS: NOREPINEPHRINE 8 MG in SODIUM CHLORIDE 0.9% 242 ML IV SCH (20:35)
[2017-01-08] MEDS: INSULIN REGULAR 100 UNIT/ML SUBCUT SCH ×4 (00:06→18:46)
[2017-01-08] MEDS: PROPOFOL 1,000 MG/100 ML BOTTLE IV SCH ×2 (02:03→11:40)
[2017-01-08] MEDS: oxyCODONE IR 5 MG TABLET PO PRN (02:57)
[2017-01-08] MEDS: PIPERACILLIN/TAZOBACTAM 3,375 MG in SODIUM CHLORIDE 0.9% 100 ML IV SCH ×3 (04:46→21:38)
[2017-01-08] MEDS: LEVOTHYROXINE 75 MCG TABLET PO SCH (06:02)
--- NOTE | 2017-01-08 08:04 | Pulmonology Progress Note ---
Pulmonary - PN: Subj Interval history: Patient is an 81-year-old white man that has numerous problems. He does have a history of heart disease along with diabetes and hypertension and diabetic neuropathy. He does take a lot of medicines. He was found poorly responsive and may have aspirated. He is on the ventilator and looks like he has pneumonia. He has had a fairly comfortable night and his blood pressure has improved. He is off pressors now. His oxygenation has been adequate. His chest x-ray still shows bilateral infiltrates. Will proceed with a bronchoscopy and check cultures. He still has a small right pneumothorax. He has done some CPAP okay. Exam (Progress Note) - Constitutional Vitals: Period Temp Pulse Resp BP Sys/Crocker Pulse Ox Last 24 Hr 98.1 F-98.9 F 60-86 12-28 80-132/45-74 95-100 Exam: General appearance: normal weight, no acute distress (Patient is sedated on the ventilator. He looks comfortable on the ventilator.) - Head Head exam: Present: normal inspection, normocephalic - Eye Eye exam: Present: EOMI. Absent: scleral icterus Pupils: Present: GUANACO - ENT ENT exam: Present: normal exam, other (ET tube is in good position) - Neck Neck exam: Present: normal inspection. Absent: lymphadenopathy, thyromegaly - Respiratory Respiratory exam: Present: He has good breath sounds bilaterally with some mild rhonchi present. - Cardiovascular Cardiovascular exam: Present: regular rate and rhythm, tachycardia. Absent: gallop, systolic murmur - GI/Abdominal GI/Abdominal exam: Present: normal bowel sounds, tenderness (He does have some mild abdominal tenderness to palpation.), soft. Absent: organomegaly - Extremities Exam Extremities exam: Absent: calf tenderness, edema, there are no signs of phlebitis. - Neurological Exam Neurological exam: Present: altered (He is mainly sedated at present.) - Psychiatric Psychiatric exam: Absent: anxious - Skin Skin exam: Present: warm, dry Results - Labs CBC & BMP: 01/06/17 03:58 01/07/17 04:26 - Diagnostic Findings Procedure: Chest x-ray: image reviewed by me, report reviewed by me (Chest x- ray still shows a 10-15% right pneumothorax. He still has bilateral infiltrates.) Assessment and Plan (1) Hypertension Status: Chronic Assessment and plan: The patient has a more stable blood pressure and is doing better now. He is off Levophed. Current Visit: Yes Qualifiers: Hypertension type: essential hypertension Qualified Code(s): I10 - Essential (primary) hypertension (2) Type I diabetes mellitus Status: Acute Assessment and plan: The patient has severe diabetes with diabetic neuropathy. His glucose is 133 today. Current Visit: No Qualifiers: Diabetes mellitus complication status: with neurologic complications Diabetes mellitus complication detail: with polyneuropathy Qualified Code(s): E10.42 - Type 1 diabetes mellitus with diabetic polyneuropathy (3) Septic shock Status: Acute Assessment and plan: Patient is getting fluids and antibiotics at the present time. His blood pressure is better at present and his urine output has improved. He is off pressors now. Current Visit: Yes (4) Aspiration pneumonia Status: Acute Assessment and plan: Patient's oxygenation is better but he does have bilateral infiltrates. Will continue antibiotic therapy. Nothing has shown up on culture so far. Will proceed with the bronchoscope and clear his airways. Current Visit: Yes Qualifiers: Aspiration pneumonia type: due to vomit Laterality: bilateral Lung location: lower lobe of lung Qualified Code(s): J69.0 - Pneumonitis due to inhalation of food and vomit (5) Respiratory failure Status: Acute Assessment and plan: The patient is on the ventilator with respiratory failure. Will lower his FiO2 and continue support. He is doing CPAP a little better now. Current Visit: Yes Qualifiers: Chronicity: acute Respiratory failure complication: hypoxia Qualified Code(s): J96.01 - Acute respiratory failure with hypoxia
--- NOTE | 2017-01-08 09:18 | XRay Report ---
XR chest 1V portable Indication: Pneumonia, right-sided pneumothorax Comparison: 07 January 2017 Findings: The heart and mediastinum are stable in size and configuration. Right-sided pneumothorax is present, appears slightly increased when compared to previous exam. The lines and tubes are unchanged in position. The pulmonary vascularity is increased slightly similar to previous. Left midlung density is stable. No other lung infiltrates, effusions or other abnormality is demonstrated. Impression: Right-sided pneumothorax, may be slightly increased when compared to previous exam. No other significant change. PROCEDURE INTERPRETED AT [facility] DEPARTMENT OF RADIOLOGY Final Report Signed by: Dr. Armando Collado
[2017-01-08] MEDS: SODIUM CHLORIDE 0.9% 1,000 ML IV SCH ×2 (09:38→19:59)
--- NOTE | 2017-01-08 10:02 | Operative Note ---
Date of procedure: 01/08/17 Pre-op diagnosis: Bilateral infiltrates Post-op diagnosis: same Procedure: Patient is on the ventilator in the ICU. He does have bilateral infiltrates. A therapeutic bronchoscopy will be done and cultures obtained Procedure: The fiberoptic bronchoscope was passed through the ET tube into the airways. The bronchopulmonary segment were identified and specimens obtained. Findings: The ET tube is in good position in the trachea. The main bronchi are open. There is some thick mucus and plugs along with some purulent secretions present. These were washed and sent for culture. There is some bronchitis present in the airways bled a little bit. There are no endobronchial lesions seen. The right upper lobe, right middle lobe, and right lower lobe are all open. The left upper lobe, left lower lobe, and lingula are all open. Once the airways were clear the procedure was stopped. He tolerated the procedure quite well. Impression: Bronchitis with retained secretions. Plan: We will continue weaning from the ventilator. Anesthesia: conscious sedation Surgeon / Physician: [place] Raphael Estimated blood loss: none Specimens: other (Washings were sent for culture) Condition: stable Disposition: ICU Results - Labs CBC & BMP: 01/06/17 03:58 01/07/17 04:26 Discharge Plan - Discharge Medications No Action levETIRAcetam TAB [Keppra Tab] 750 mg PO BID Gabapentin Cap/Tab [Neurontin Cap/Tab] 300 mg PO 0900,1500 Tamsulosin [Flomax] 0.4 mg PO BID Ramipril [Altace] 2.5 mg PO DAILY Allopurinol [Zyloprim] 300 mg PO DAILY Gabapentin Cap/Tab [Neurontin Cap/Tab] 900 mg PO BEDTIME Hydrocortisone 2.5% Cream 1 applic TOP BID PRN #0 cream PRN Reason: Itching Morphine Sulfate/Naltrexone [Embeda 80/3.2] 1 capsule PO BID Insulin Lispro Prot/Lisp 75/25 [HumaLOG Mix 75/25] 40 unit SUBCUT QAM diphenhydrAMINE CAP [Benadryl Cap] 50 mg PO Q6H PRN PRN Reason: Itching oxyCODONE IR [Roxicodone] 20 mg PO TID Levothyroxine Tab [Synthroid Tab] 75 mcg PO DAILY@0700 Cefdinir [Omnicef] 300 mg PO BID #4 capsule Doxycycline Hyclate Cap [Vibramycin Cap] 100 mg PO BID #4 capsule Insulin Lispro Prot/Lisp 75/25 [HumaLOG Mix 75/25] 50 unit SUBCUT QPM Omeprazole [Prilosec] 40 mg PO DAILY Furosemide Tab [Lasix Tab] 80 mg PO DAILY carBAMazepine [Carbamazepine] 200 mg PO BID Pregabalin [Lyrica] 75 mg PO BID hydrOXYzine HCL TAB [Atarax Tab] 25 mg PO Q6H PRN #0 tablet PRN Reason: Itching - Follow Up or Referral - Forms/Instructions
[2017-01-08] MEDS: oxyCODONE IR 5 MG TABLET PO SCH ×3 (10:14→21:31)
[2017-01-08] MEDS: FAMOTIDINE 20 MG/2 ML VIAL IV SCH ×2 (10:14→21:34)
[2017-01-08] MEDS: carBAMazepine 200 MG TABLET PO SCH ×2 (10:14→21:29)
[2017-01-08] MEDS: PANTOPRAZOLE 40 MG TABLET PO SCH (10:15)
[2017-01-08] MEDS: GABAPENTIN 300 MG CAPSULE PO SCH ×3 (10:15→21:31)
[2017-01-08] MEDS: ALLOPURINOL 300 MG TABLET PO SCH (10:15)
[2017-01-08] MEDS: levETIRAcetam 250 MG TABLET PO SCH ×2 (10:15→21:32)
[2017-01-08] MEDS: PREGABALIN 75 MG CAPSULE PO SCH ×2 (10:15→21:32)
--- NOTE | 2017-01-08 12:17 | Hospitalist Progress Note ---
Assessment and Plan (1) Aspiration pneumonia Status: Acute Assessment and plan: Continue IV antibiotics and ventilator support. Pulmonary following. Continue Zosyn and Levaquin. Current Visit: Yes Qualifiers: Aspiration pneumonia type: due to vomit Laterality: bilateral Lung location: lower lobe of lung Qualified Code(s): J69.0 - Pneumonitis due to inhalation of food and vomit (2) Respiratory failure Status: Acute Assessment and plan: Progressing on the vent. Pulmonary is following. Current Visit: Yes Qualifiers: Chronicity: acute Respiratory failure complication: hypoxia Qualified Code(s): J96.01 - Acute respiratory failure with hypoxia (3) Septic shock Status: Acute Assessment and plan: On IVF and IV antibiotics.Continue prn pressor use Current Visit: Yes (4) Neuropathy Status: Chronic Assessment and plan: on multiple pain meds at home. Follow pain clinic Current Visit: Yes (5) Cerebellar ataxia Status: Chronic Assessment and plan: stable Current Visit: Yes (6) Type 2 diabetes mellitus Status: Chronic Assessment and plan: stable on current regime.Will get A1c level Current Visit: Yes (7) Hypertension Status: Chronic Assessment and plan: stable. Current Visit: Yes Qualifiers: Hypertension type: essential hypertension Qualified Code(s): I10 - Essential (primary) hypertension (8) Seizure disorder Status: Chronic Assessment and plan: stable on meds Current Visit: No (9) DAV (acute kidney injury) Status: Acute Assessment and plan: Secondary to sepsis and hypotension.Impoved Current Visit: Yes (10) Debility Status: Chronic Assessment and plan: PT consult after extubation Current Visit: No Hospitalist: Subjective Interval history: Patient was seen, sedated and intubated .Family member was present in the room. No major problems overnight. He is tolerating tube feeding and progressing on the vent. Exam - Constitutional Vitals: Period Temp Pulse Resp BP Sys/Crocker Pulse Ox Last 24 Hr 98.1 F-99.8 F 60-80 12-28 101-138/47-82 95-100 General appearance: no acute distress, other (seadted and intubated) - Head Head exam: Present: normal inspection - Respiratory Respiratory exam: Present: clear to auscultation bilaterally - Cardiovascular Cardiovascular exam: Present: regular rate and rhythm - GI/Abdominal GI/Abdominal exam: Present: normal bowel sounds - Extremities Exam Extremities exam: Present: normal inspection - Neurological Exam Neurological exam: Present: alert, oriented X3 Results - Labs CBC & BMP: 01/06/17 03:58 01/07/17 04:26 Lab Results: I have reviewed the past 24 hour labs
[2017-01-08] MEDS: LEVOFLOXACIN INJ 750 MG in PREMIX 1 EACH IV SCH (20:13)
[2017-01-08] MEDS: ENOXAPARIN 40 MG/0.4 ML SYRINGE SUBCUT SCH (21:29)
[2017-01-08] MEDS: NOREPINEPHRINE 8 MG in SODIUM CHLORIDE 0.9% 242 ML IV SCH (21:39)
[2017-01-09] MEDS: PROPOFOL 1,000 MG/100 ML BOTTLE IV SCH ×4 (00:26→17:01)
[2017-01-09] MEDS: INSULIN REGULAR 100 UNIT/ML SUBCUT SCH ×4 (00:27→18:01)
[2017-01-09] MEDS: hydrALAZINE 20 MG/1 ML VIAL IV PRN ×3 (03:02→21:02)
[2017-01-09 03:54] LABS: ABG Base Excess -1.1 MMOL/L (-2.5-2.5); ABG HCO3 21.8 MMOL/L (20-26); ABG Oxygen Saturation 97.5 % (95-100); ABG PCO2 30.7 MM HG (35-48); ABG PO2 99.1 MM HG (80-95); ABG TCO2 22.8 MMOL/L (23-27); Allen Test Positive; Pt O2 Delivery Device Ventilator
[2017-01-09] MEDS: PIPERACILLIN/TAZOBACTAM 3,375 MG in SODIUM CHLORIDE 0.9% 100 ML IV SCH ×3 (05:35→21:15)
[2017-01-09] MEDS: SODIUM CHLORIDE 0.9% 1,000 ML IV SCH ×2 (05:40→06:11)
[2017-01-09 05:54] LABS: Calcium 8.1 MG/DL (8.5-10.1); Osmolality,Calculated 303.9 MOS/KG (273-304); Potassium 3.2 MMOL/L (3.5-5.1)
[2017-01-09] MEDS: LEVOTHYROXINE 75 MCG TABLET PO SCH (06:09)
--- NOTE | 2017-01-09 08:05 | Pulmonology Progress Note ---
Pulmonary - PN: Subj Interval history: Patient is an 81-year-old white man that has numerous problems. He does have a history of heart disease along with diabetes and hypertension and diabetic neuropathy. He does take a lot of medicines. He was found poorly responsive and may have aspirated. He is on the ventilator and looks like he has pneumonia. Yesterday we did a therapeutic bronchoscopy and cleared out a lot of secretions. He is doing a little better on CPAP. His oxygenation seems stable. He has stable vital signs on the ventilator. Hopefully he can be extubated in the next day or 2. Exam (Progress Note) - Constitutional Vitals: Period Temp Pulse Resp BP Sys/Crocker Pulse Ox Last 24 Hr 98.0 F-98.7 F 60-98 13-26 112-199/56-104 95-100 Exam: General appearance: normal weight, no acute distress (Patient is sedated on the ventilator. He looks comfortable on the ventilator.) - Head Head exam: Present: normal inspection, normocephalic - Eye Eye exam: Present: EOMI. Absent: scleral icterus Pupils: Present: GUANACO - ENT ENT exam: Present: normal exam, other (ET tube is in good position) - Neck Neck exam: Present: normal inspection. Absent: lymphadenopathy, thyromegaly - Respiratory Respiratory exam: Present: He has good breath sounds bilaterally with some mild rhonchi present. His breath sounds on the right are slightly diminished from the left. - Cardiovascular Cardiovascular exam: Present: regular rate and rhythm, tachycardia. Absent: gallop, systolic murmur - GI/Abdominal GI/Abdominal exam: Present: normal bowel sounds, tenderness (He does have some mild abdominal tenderness to palpation.), soft. Absent: organomegaly - Extremities Exam Extremities exam: Absent: calf tenderness, edema, there are no signs of phlebitis. - Neurological Exam Neurological exam: Present: altered (He is mainly sedated at present.) - Psychiatric Psychiatric exam: Absent: anxious - Skin Skin exam: Present: warm, dry Results - Labs CBC & BMP: 01/06/17 03:58 01/09/17 04:27 Labs: PO2 is 99 with a PCO2 of 30 and a pH of 7.47. Assessment and Plan (1) Hypertension Status: Chronic Assessment and plan: The patient has a more stable blood pressure and is doing better now. He is off Levophed. He looks like he is hemodynamically stable at present Current Visit: Yes Qualifiers: Hypertension type: essential hypertension Qualified Code(s): I10 - Essential (primary) hypertension (2) Type I diabetes mellitus Status: Acute Assessment and plan: The patient has severe diabetes with diabetic neuropathy. His glucose is 113 today. Current Visit: No Qualifiers: Diabetes mellitus complication status: with neurologic complications Diabetes mellitus complication detail: with polyneuropathy Qualified Code(s): E10.42 - Type 1 diabetes mellitus with diabetic polyneuropathy (3) Septic shock Status: Acute Assessment and plan: Patient is getting fluids and antibiotics at the present time. His blood pressure is better at present and his urine output has improved. He is off pressors now. Overall he is hemodynamically stable Current Visit: Yes (4) Aspiration pneumonia Status: Acute Assessment and plan: Patient's oxygenation is better but he does have bilateral infiltrates. Will continue antibiotic therapy. Nothing has shown up on culture so far. Clinically he seems to be doing a little better now. Current Visit: Yes Qualifiers: Aspiration pneumonia type: due to vomit Laterality: bilateral Lung location: lower lobe of lung Qualified Code(s): J69.0 - Pneumonitis due to inhalation of food and vomit (5) Respiratory failure Status: Acute Assessment and plan: The patient is on the ventilator with respiratory failure. Will lower his FiO2 and continue support. He is doing CPAP a little better now. Hopefully he will be ready to extubate tomorrow or the next day. Current Visit: Yes Qualifiers: Chronicity: acute Respiratory failure complication: hypoxia Qualified Code(s): J96.01 - Acute respiratory failure with hypoxia
[2017-01-09] MEDS ORDERED: POTASSIUM CHLORIDE 20 MEQ TABLET PO ONE (08:38)
[2017-01-09] MEDS: FAMOTIDINE 20 MG/2 ML VIAL IV SCH ×2 (09:13→21:11)
[2017-01-09] MEDS: RAMIPRIL 2.5 MG CAPSULE PO SCH (09:13)
[2017-01-09] MEDS: ALLOPURINOL 300 MG TABLET PO SCH (09:14)
[2017-01-09] MEDS: oxyCODONE IR 5 MG TABLET PO SCH ×3 (09:14→21:32)
[2017-01-09] MEDS: levETIRAcetam 250 MG TABLET PO SCH ×2 (09:14→21:32)
[2017-01-09] MEDS: PANTOPRAZOLE 40 MG TABLET PO SCH (09:14)
[2017-01-09] MEDS: carBAMazepine 200 MG TABLET PO SCH ×2 (09:14→21:33)
[2017-01-09] MEDS: GABAPENTIN 300 MG CAPSULE PO SCH ×2 (09:16→21:33)
[2017-01-09] MEDS: PREGABALIN 75 MG CAPSULE PO SCH (09:16)
[2017-01-09] MEDS ORDERED: FUROSEMIDE 40 MG/4 ML VIAL IV ONE (10:32)
--- NOTE | 2017-01-09 10:32 | XRay Report ---
XR chest 1V portable Indication: Ventilator patient Comparison: 08 January 2017 Findings: The heart and mediastinum are stable in size and configuration. Lines and tubes are unchanged in position. The pulmonary vascularity is increased with bilateral increased interstitial lung density. No other lung infiltrates, effusions, pneumothorax or other abnormality is demonstrated. Impression: Findings suggest increasing cardiac decompensation. PROCEDURE INTERPRETED AT [facility] DEPARTMENT OF RADIOLOGY Final Report Signed by: Dr. Armando Collado
--- NOTE | 2017-01-09 11:34 | Hospitalist Progress Note ---
Assessment and Plan (1) Aspiration pneumonia Status: Acute Assessment and plan: Continue IV antibiotics and ventilator support. Pulmonary following. Continue Zosyn and Levaquin. Current Visit: Yes Qualifiers: Aspiration pneumonia type: due to vomit Laterality: bilateral Lung location: lower lobe of lung Qualified Code(s): J69.0 - Pneumonitis due to inhalation of food and vomit (2) Respiratory failure Status: Acute Assessment and plan: Progressing on the vent. Pulmonary is following. Current Visit: Yes Qualifiers: Chronicity: acute Respiratory failure complication: hypoxia Qualified Code(s): J96.01 - Acute respiratory failure with hypoxia (3) Septic shock Status: Acute Assessment and plan: Improving on IVF and IV antibiotics.Continue prn pressor use. Brochial washings grew gram positive cocci and yeast. -will give a dose of vancomycin -start IV Diflucan Current Visit: Yes (4) Neuropathy Status: Chronic Assessment and plan: on multiple pain meds at home. Follow pain clinic Current Visit: Yes (5) Cerebellar ataxia Status: Chronic Assessment and plan: stable Current Visit: Yes (6) Type 2 diabetes mellitus Status: Chronic Assessment and plan: stable on current regime.Hb A1c level-7.0 Current Visit: Yes (7) Hypertension Status: Chronic Assessment and plan: BP is creeping up. Plan restart home ramipril, follow response. Current Visit: Yes Qualifiers: Hypertension type: essential hypertension Qualified Code(s): I10 - Essential (primary) hypertension (8) Seizure disorder Status: Chronic Assessment and plan: stable on meds Current Visit: No (9) DAV (acute kidney injury) Status: Acute Assessment and plan: Secondary to sepsis and hypotension.Impoved Current Visit: Yes (10) Debility Status: Chronic Assessment and plan: PT consult after extubation Current Visit: No (11) Hypernatremia Status: Acute Assessment and plan: -mild, start free water, bmp in am. Current Visit: Yes Hospitalist: Subjective Interval history: Patient appeared comfortable on the vent. His blood pressure was creeping up so his Ramipril has been restarted.His potassium was also mildly low and he has been replaced.No acute events overnight. He is tolerating his CPAP trials and hopefully will be extubated in the next day or 2. Exam - Constitutional Vitals: Period Temp Pulse Resp BP Sys/Crocker Pulse Ox Last 24 Hr 97.2 F-98.7 F 60-86 13-32 123-199/60-104 95-100 General appearance: no acute distress, other (sedated and intubated) - Eye Eye exam: Present: EOMI - Respiratory Respiratory exam: Present: clear to auscultation bilaterally - Cardiovascular Cardiovascular exam: Present: regular rate and rhythm - GI/Abdominal GI/Abdominal exam: Present: normal bowel sounds - Extremities Exam Extremities exam: Present: normal inspection Results - Labs CBC & BMP: 01/06/17 03:58 01/09/17 04:27 Lab Results: I have reviewed the past 24 hour labs
[2017-01-09] MEDS ORDERED: VANCOMYCIN INJ 1,000 MG in SODIUM CHLORIDE 0.9% 250 ML IV ONE (11:50)
[2017-01-09] MEDS: FLUCONAZOLE INJ 200 MG in PREMIX 1 EACH IV SCH (14:43)
[2017-01-09] MEDS: LEVOFLOXACIN INJ 750 MG in PREMIX 1 EACH IV SCH (18:02)
[2017-01-09] MEDS: ENOXAPARIN 40 MG/0.4 ML SYRINGE SUBCUT SCH (21:14)
[2017-01-09] MEDS: NOREPINEPHRINE 8 MG in SODIUM CHLORIDE 0.9% 242 ML IV SCH (21:42)
[2017-01-10] MEDS: INSULIN REGULAR 100 UNIT/ML SUBCUT SCH ×3 (00:11→12:46)
[2017-01-10] MEDS: PROPOFOL 1,000 MG/100 ML BOTTLE IV SCH ×2 (00:11→12:45)
[2017-01-10] MEDS: PIPERACILLIN/TAZOBACTAM 3,375 MG in SODIUM CHLORIDE 0.9% 100 ML IV SCH ×2 (05:15→13:45)
[2017-01-10 05:51] LABS: Basophils % 0.3 % (0.0-0.8); Eosinophils # 0.7 10*3/uL (0.0-0.87); Eosinophils % 9.8 % (0.00-10.9); Hematocrit 29.9 VOL% (42.0-52.0); Hemoglobin 9.9 GM/DL (14.0-18.0); Immature Granulocytes % 1.9 %; Immature Granulocytes Absolute 0.13 #; Lymphocytes # 0.9 10*3/uL (1.4-4.0); Lymphocytes % 13.2 % (21.2-54.2); Mean Corpuscular HGB Conc 33.1 GM/DL (32-36); Mean Corpuscular Hemoglobin 30 PG (27-34); Mean Corpuscular Volume 90.3 FL (87-102); Mean Platelet Volume 13.6 FL (9.6-12.0); Monocytes # 0.6 10*3/uL (0.11-0.8); Monocytes % 8.5 % (1.7-12.7); Neutrophils # 4.5 10*3/uL (1.4-7.4); Neutrophils % 66.3 % (38.7-73.9); Platelet Count 133 T/CUMM (130-400); Red Blood Count 3.31 MC/CUMM (3.8-5.5); Red Cell Distribution Width 16.5 % (9.3-17.3); White Blood Count 6.8 T/CUMM (4-12)
[2017-01-10 06:19] LABS: Band Neutrophils 2 % (0-10); Eosinophils 9 % (0-10); Lymphocytes 11 % (20-55); Myelocytes 1 %; Promyelocytes 1 %; Segmented Neutrophils 72 % (50-85); Total Cells Counted 100
[2017-01-10 06:20] LABS: Platelet Estimate Adequate
[2017-01-10 06:38] LABS: Calcium 8.1 MG/DL (8.5-10.1); Osmolality,Calculated 307.7 MOS/KG (273-304); Potassium 3.2 MMOL/L (3.5-5.1)
[2017-01-10] MEDS: LEVOTHYROXINE 75 MCG TABLET PO SCH (07:08)
--- NOTE | 2017-01-10 07:25 | Pulmonology Progress Note ---
Pulmonary - PN: Subj Interval history: Patient is an 81-year-old white man that has numerous problems. He does have a history of heart disease along with diabetes and hypertension and diabetic neuropathy. He does take a lot of medicines. He was found poorly responsive and may have aspirated. He is on the ventilator and looks like he has pneumonia. Yesterday's x-ray looks a little wet. He did diurese fairly well. He did CPAP for several hours but fatigued. His blood pressure and heart rate have been stable. His renal function is stable. We will continue to diurese a little and hopefully can extubate soon. Exam (Progress Note) - Constitutional Vitals: Period Temp Pulse Resp BP Sys/Crocker Pulse Ox Last 24 Hr 98.0 F-98.9 F 60-87 10-38 113-184/59-87 91-99 Exam: General appearance: normal weight, no acute distress (Patient is sedated on the ventilator. He looks comfortable on the ventilator.) - Head Head exam: Present: normal inspection, normocephalic - Eye Eye exam: Present: EOMI. Absent: scleral icterus Pupils: Present: GUANACO - ENT ENT exam: Present: normal exam, other (ET tube is in good position) - Neck Neck exam: Present: normal inspection. Absent: lymphadenopathy, thyromegaly - Respiratory Respiratory exam: Present: He has good breath sounds bilaterally seems to be moving air well with just some minimal rhonchi. - Cardiovascular Cardiovascular exam: Present: regular rate and rhythm, tachycardia. Absent: gallop, systolic murmur - GI/Abdominal GI/Abdominal exam: Present: normal bowel sounds, tenderness (He does have some mild abdominal tenderness to palpation.), soft. Absent: organomegaly - Extremities Exam Extremities exam: Absent: calf tenderness, edema, there are no signs of phlebitis. - Neurological Exam Neurological exam: Present: altered (He is mainly sedated at present.) - Psychiatric Psychiatric exam: Absent: anxious - Skin Skin exam: Present: warm, dry Results - Labs CBC & BMP: 01/10/17 05:13 01/10/17 05:13 - Diagnostic Findings Procedure: Chest x-ray: image reviewed by me, report reviewed by me (Chest x- ray is still very abnormal but the right lung may be better. Still has considerable infiltrate on the left.) Assessment and Plan (1) Hypertension Status: Chronic Assessment and plan: The patient has a more stable blood pressure and is doing better now. He is off Levophed. His heart rate and blood pressure are better. Current Visit: Yes Qualifiers: Hypertension type: essential hypertension Qualified Code(s): I10 - Essential (primary) hypertension (2) Type I diabetes mellitus Status: Acute Assessment and plan: The patient has severe diabetes with diabetic neuropathy. His glucose is 170 today. Current Visit: No Qualifiers: Diabetes mellitus complication status: with neurologic complications Diabetes mellitus complication detail: with polyneuropathy Qualified Code(s): E10.42 - Type 1 diabetes mellitus with diabetic polyneuropathy (3) Septic shock Status: Acute Assessment and plan: Patient is getting fluids and antibiotics at the present time. His blood pressure is better at present and his urine output has improved. He is off pressors now. Overall he is hemodynamically stable. Current Visit: Yes (4) Aspiration pneumonia Status: Acute Assessment and plan: Patient's oxygenation is better but he does have bilateral infiltrates. Will continue antibiotic therapy. The bronchial washings have a light growth of yeast and gram-positive cocci. Chest x-ray is slowly improving. Current Visit: Yes Qualifiers: Aspiration pneumonia type: due to vomit Laterality: bilateral Lung location: lower lobe of lung Qualified Code(s): J69.0 - Pneumonitis due to inhalation of food and vomit (5) Respiratory failure Status: Acute Assessment and plan: The patient is on the ventilator with respiratory failure. Will lower his FiO2 and continue support. We will continue weaning trials for now. Current Visit: Yes Qualifiers: Chronicity: acute Respiratory failure complication: hypoxia Qualified Code(s): J96.01 - Acute respiratory failure with hypoxia
[2017-01-10] MEDS ORDERED: FUROSEMIDE 40 MG/4 ML VIAL IV ONE (07:28)
--- NOTE | 2017-01-10 08:29 | XRay Report ---
XR chest 1V portable Indication: Ventilator patient Comparison: 09 January 2017 Findings: The heart and mediastinum are stable in size and configuration. Endotracheal tube is been removed. Remaining lines and tubes are unchanged in position. The pulmonary vascularity is increased with bilateral pulmonary density similar to previous exam lung infiltrates, effusions, pneumothorax or other abnormality is demonstrated. Impression: Endotracheal tube is been removed. No other significant change. PROCEDURE INTERPRETED AT [facility] DEPARTMENT OF RADIOLOGY Final Report Signed by: Dr. Armando Collado
[2017-01-10] MEDS: oxyCODONE IR 5 MG TABLET PO SCH ×2 (09:56→15:19)
[2017-01-10] MEDS: levETIRAcetam 250 MG TABLET PO SCH (09:58)
[2017-01-10] MEDS: PANTOPRAZOLE 40 MG TABLET PO SCH (09:59)
[2017-01-10] MEDS: ALLOPURINOL 300 MG TABLET PO SCH (09:59)
[2017-01-10] MEDS: RAMIPRIL 2.5 MG CAPSULE PO SCH (10:01)
[2017-01-10] MEDS: FAMOTIDINE 20 MG/2 ML VIAL IV SCH (10:05)
--- NOTE | 2017-01-10 10:10 | Hospitalist Progress Note ---
Assessment and Plan (1) Aspiration pneumonia Status: Acute Assessment and plan: Continue IV antibiotics and ventilator support. Pulmonary following. Continue Zosyn and Levaquin and vancomycin Current Visit: Yes Qualifiers: Aspiration pneumonia type: due to vomit Laterality: bilateral Lung location: lower lobe of lung Qualified Code(s): J69.0 - Pneumonitis due to inhalation of food and vomit (2) Respiratory failure Status: Acute Assessment and plan: Continue ventilatory support. Pulmonary following Current Visit: Yes Qualifiers: Chronicity: acute Respiratory failure complication: hypoxia Qualified Code(s): J96.01 - Acute respiratory failure with hypoxia (3) Septic shock Status: Resolved Assessment and plan: IV fluids and IV antibiotics initiated. Current Visit: Yes (4) Neuropathy Status: Chronic Assessment and plan: Continue home medications. Current Visit: Yes (5) Debility Status: Chronic Current Visit: No (6) Type 2 diabetes mellitus Status: Chronic Current Visit: Yes (7) Hypertension Status: Chronic Current Visit: Yes Qualifiers: Hypertension type: essential hypertension Qualified Code(s): I10 - Essential (primary) hypertension (8) Seizure disorder Status: Chronic Current Visit: No (9) DAV (acute kidney injury) Status: Resolved Assessment and plan: Secondary to sepsis and hypotension. Current Visit: Yes Hospitalist: Subjective Interval history: Patient seen and examined. No acute events overnight. Case discussed with nursing staff. Labs reviewed. Remains intubated and sedated. Off Levophed. Chest x-ray with bilateral infiltrates versus cardiac decompensation. Serum sodium is increasing as well as chloride. IV fluids have been discontinued. He is tolerating tube feeds. Exam - Constitutional Vitals: Period Temp Pulse Resp BP Sys/Crocker Pulse Ox Last 24 Hr 98.0 F-98.9 F 60-87 10-38 113-184/59-87 91-99 Exam: Constitutional System: Mild distress. No tremulousness. Intubated and sedated. Head: Normocephalic, atraumatic. Ears, Nose and Throat System: No pain or tenderness. No epistaxis or discharge Eyes System: Pupils equal, round, and reactive. Extraocular muscles intact. Neck: Supple, without adenopathy, No jugular venous distention. Endotracheal tube in place Respiratory System: Chest bilateral rhonchi to auscultation. Cardiovascular System: Heart with regular rate and rhythm. No murmur. GI System: Abdomen soft, nontender. Normo active bowel sounds present. Musculoskeletal System: limbs with no pedal edema. Full distal pulses. Neurological System: Patient is sedated Results - Labs CBC & BMP: 01/10/17 05:13 01/10/17 05:13 Lab Results: I have reviewed the past 24 hour labs - Diagnostic Findings Procedure: Chest x-ray: image reviewed by me, report reviewed by me
[2017-01-10] MEDS: carBAMazepine 200 MG TABLET PO SCH (10:15)
--- NOTE | 2017-01-10 11:33 | XRay Report ---
XR chest 1V portable Indication: Shortness of breath Comparison: 10 January 2017 at 3:14 AM Findings: The heart and mediastinum are stable in size and configuration. Pacemaker device is unchanged in position. The lines and tubes are unchanged in position. The pulmonary vascularity is increased with bilateral pulmonary density, similar to previous exam. No other lung infiltrates, effusions, pneumothorax or other abnormality is demonstrated. Impression: No significant change PROCEDURE INTERPRETED AT [facility] DEPARTMENT OF RADIOLOGY Final Report Signed by: Dr. Armando Collado
--- NOTE | 2017-01-10 12:28 | Discharge Summary ---
Hospital Course - Hospital Course Hospital Course: Patient is an 81-year-old white man that has numerous problems. He does have a history of heart disease along with diabetes and hypertension and diabetic neuropathy. He does take a lot of medicines. He was found poorly responsive and may have aspirated. He is on the ventilator and looks like he has pneumonia. Yesterday's x-ray looks a little wet. He did diurese fairly well. He did CPAP for several hours but fatigued. His blood pressure and heart rate have been stable. His renal function is stable. We will continue to diurese a little and hopefully can extubate soon. - Diagnostic Findings Procedure: Chest x-ray: image reviewed by me, report reviewed by me (Chest x- ray is still very abnormal but the right lung may be better. Still has considerable infiltrate on the left.) Assessment and Plan (1) Hypertension Status: Chronic Assessment and plan: The patient has a more stable blood pressure and is doing better now. He is off Levophed. His heart rate and blood pressure are better. Current Visit: Yes Qualifiers: Hypertension type: essential hypertension Qualified Code(s): I10 - Essential (primary) hypertension (2) Type I diabetes mellitus Status: Acute Assessment and plan: The patient has severe diabetes with diabetic neuropathy. His glucose is 170 today. Current Visit: No Qualifiers: Diabetes mellitus complication status: with neurologic complications Diabetes mellitus complication detail: with polyneuropathy Qualified Code(s): E10.42 - Type 1 diabetes mellitus with diabetic polyneuropathy (3) Septic shock Status: Acute Assessment and plan: Patient is getting fluids and antibiotics at the present time. His blood pressure is better at present and his urine output has improved. He is off pressors now. Overall he is hemodynamically stable. Current Visit: Yes (4) Aspiration pneumonia Status: Acute Assessment and plan: Patient's oxygenation is better but he does have bilateral infiltrates. Will continue antibiotic therapy. The bronchial washings have a light growth of yeast and gram-positive cocci. Chest x-ray is slowly improving. Current Visit: Yes Qualifiers: Aspiration pneumonia type: due to vomit Laterality: bilateral Lung location: lower lobe of lung Qualified Code(s): J69.0 - Pneumonitis due to inhalation of food and vomit (5) Respiratory failure Status: Acute Assessment and plan: The patient is on the ventilator with respiratory failure. Will lower his FiO2 and continue support. We will continue weaning trials for now. Current Visit: Yes Qualifiers: Chronicity: acute Respiratory failure complication: hypoxia Qualified Code(s): J96.01 - Acute respiratory failure with hypoxia The patient has been in the intensive care unit for the last 5 days. He is receiving IV antibiotics for treatment of aspiration pneumonia. He has been weaned off pressors. He continues to improve slowly but is not ready for extubation. He is being transferred to [facility] for continued ventilatory support and IV antibiotics with hopes of weaning from the ventilator soon. He is being followed by Dr. Raphael and his impressions are listed above. - Time spent with patient Time with patient DS: Greater than 30 minutes (Total discharge time for this patient, including [id number] time, clinical documentation, medication reconciliation, and discharge planning was 38 minutes.) Diagnosis - Discharge Diagnosis (1) Aspiration pneumonia Status: Acute (2) Respiratory failure Status: Acute (3) Septic shock Status: Resolved (4) Neuropathy Status: Chronic (5) Debility Status: Chronic (6) Type 2 diabetes mellitus Status: Chronic (7) Hypertension Status: Chronic (8) Seizure disorder Status: Chronic (9) DAV (acute kidney injury) Status: Resolved Discharge Plan - Discharge Data Disposition: Disch/Xfer to Department Operations Manager Hos Condition at Discharge: Guarded Discharge Diet: other (tube feed diet) Activity: as per physical therapy Contact your physician if you experience:: fever over 101, Shortness of breath - Discharge Medications New Albuterol Neb [Proventil Neb] 2.5 mg RESP TX RT Q1H PRN PRN Reason: Shortness Of Breath/Wheezing Famotidine Inj [Pepcid Inj] 20 mg IV Q12H vial Fluconazole Inj [Diflucan Inj] 200 mg IV Q24H hydrALAZINE INJ [Apresoline Inj] 10 mg IV Q6H PRN vial PRN Reason: SBP > 180 or DBP > 100 Levofloxacin Inj [Levaquin Inj] 750 mg IV Q24H oxyCODONE IR [Roxicodone] 5 mg PO Q4H PRN tablet PRN Reason: Pain Severe (8-10) Piperacillin/Tazobactam [Zosyn] 3,375 mg IV Q8H vial Ramipril [Altace] 2.5 mg PO DAILY capsule Enoxaparin [Lovenox] 40 mg SUBCUT Q24H syringe Insulin Regular [HumuLIN R] See Protocol SUBCUT Q6HR unit Continue levETIRAcetam TAB [Keppra Tab] 750 mg PO BID Allopurinol [Zyloprim] 300 mg PO DAILY Gabapentin Cap/Tab [Neurontin Cap/Tab] 900 mg PO BEDTIME Hydrocortisone 2.5% Cream 1 applic TOP BID PRN #0 cream PRN Reason: Itching Morphine Sulfate/Naltrexone [Embeda 80/3.2] 1 capsule PO BID oxyCODONE IR [Roxicodone] 20 mg PO TID Levothyroxine Tab [Synthroid Tab] 75 mcg PO DAILY@0700 Omeprazole [Prilosec] 40 mg PO DAILY carBAMazepine [Carbamazepine] 200 mg PO BID Pregabalin [Lyrica] 75 mg PO BID hydrOXYzine HCL TAB [Atarax Tab] 25 mg PO Q6H PRN #0 tablet PRN Reason: Itching Discontinued Gabapentin Cap/Tab [Neurontin Cap/Tab] 300 mg PO 0900,1500 Tamsulosin [Flomax] 0.4 mg PO BID Ramipril [Altace] 2.5 mg PO DAILY Insulin Lispro Prot/Lisp 75/25 [HumaLOG Mix 75/25] 40 unit SUBCUT QAM diphenhydrAMINE CAP [Benadryl Cap] 50 mg PO Q6H PRN PRN Reason: Itching Cefdinir [Omnicef] 300 mg PO BID #4 capsule Doxycycline Hyclate Cap [Vibramycin Cap] 100 mg PO BID #4 capsule Insulin Lispro Prot/Lisp 75/25 [HumaLOG Mix 75/25] 50 unit SUBCUT QPM Furosemide Tab [Lasix Tab] 80 mg PO DAILY - Follow Up or Referral - Forms/Instructions Exam - Constitutional Vitals: Period Temp Pulse Resp BP Sys/Crocker Pulse Ox Last 24 Hr 98.0 F-98.9 F 60-87 10-39 113-184/59-92 91-99 Discharge Results Procedures and tests throughout hospitalization: Pending Orders 01/05/17 20:34 Blood Culture Routine 01/08/17 Bronchial Washings C & Gram St Routine 01/11/17 04:00 XR chest 1V portable IN AM CMP [Comprehensive Metabolic Panel] IN AM Comp Blood Count Auto Diff IN AM Labs on day of discharge: Labs from last 24 hours 01/10/17 01/10/17 01/10/17 12:16 06:34 05:13 WBC RBC Hgb Hct MCV MCH MCHC RDW Plt Count MPV Neut % (Auto) Lymph % (Auto) Moca % (Auto) Eos % (Auto) Baso % (Auto) Neut # (Auto) Lymph # (Auto) Moca # (Auto) Eos # (Auto) Baso # (Auto) Total Counted Immature Gran % Nucleated RBC % Immature Gran # Segmented Neutrophils Band Neutrophils Lymphocytes Monocytes Eosinophils Myelocytes Promyelocytes Nucleated RBCs # Platelet Estimate Pappenheimer Bodies Sodium 152 H Potassium 3.2 L Chloride 118 H Carbon Dioxide 24 Anion Gap 13.2 BUN 27 H Creatinine 0.80 GFR Calculation 101 BUN/Creatinine Ratio 33.00 H Glucose 140 H POC Glucose 138 H 170 H Calculated Osmolality 307.7 H Calcium 8.1 L 01/10/17 01/09/17 01/09/17 05:13 23:47 17:40 WBC 6.8 RBC 3.31 L Hgb 9.9 L Hct 29.9 L MCV 90.3 MCH 30 MCHC 33.1 RDW 16.5 Plt Count 133 MPV 13.6 H Neut % (Auto) 66.3 Lymph % (Auto) 13.2 L Moca % (Auto) 8.5 Eos % (Auto) 9.8 Baso % (Auto) 0.3 Neut # (Auto) 4.5 Lymph # (Auto) 0.9 L Moca # (Auto) 0.6 Eos # (Auto) 0.7 Baso # (Auto) 0.0 Total Counted 100 Immature Gran % 1.9 Nucleated RBC % 0.0 Immature Gran # 0.13 Segmented Neutrophils 72 Band Neutrophils 2 Lymphocytes 11 L Monocytes 4 Eosinophils 9 Myelocytes 1 Promyelocytes 1 Nucleated RBCs # 0.00 Platelet Estimate Adequate Pappenheimer Bodies Marketing Senior Recruiter Sodium Potassium Chloride Carbon Dioxide Anion Gap BUN Creatinine GFR Calculation BUN/Creatinine Ratio Glucose POC Glucose 181 H 168 H Calculated Osmolality Calcium Preliminary micro results at discharge 01/08/17 Unknown Bronchial Washings Culture - Preliminary Bronchial Washings Staph Aureus Methicillin Resis Yeast 01/05/17 20:34 Blood Culture - Preliminary Blood No growth at 3 days 01/05/17 20:34 Blood Culture - Preliminary Blood No growth at 3 days - Imaging and Cardiology Procedure: Chest x-ray: image reviewed by me, report reviewed by me DS: Provider Date of admission: 01/05/17 19:54 Primary care physician: . No PCP Attending physician on admission: John Paul Smith MD Consults: 01/05/17 19:08 Consult to Physician [CONS] Routine Comment: vent chemical waste management technician Provider: Consult to Specialist Group: Pulmonology 01/05/17 21:39 Consult to Dietitian [CONS] Routine Reason for Dietitian: Dietary Consult 01/06/17 11:31 Consult to Dietitian [CONS] Routine Reason for Dietitian: TF-Initiate/Manage 01/07/17 14:55 Consult to Case Mgmt/Social Srvs [CONS] Routine Reason for Case Mgmt/Social Srvs: LTAC Discharging clinician: Alex Rosen MD Expected date of discharge: 01/10/17
[2017-01-10] MEDS: FLUCONAZOLE INJ 200 MG in PREMIX 1 EACH IV SCH (13:44)
[2017-01-10 18:14] VITALS: BP 143/64
== END 2017-01-10 15:43 | DRG 870 ==
LOC: SUATTDRO 19:54 → N.CC 19:54
PROVIDERS: ADMIT Internal Medicine; ATTEND Family Medicine

== ENCOUNTER 2017-07-18 15:12 | Inpatient (IN) ==
[2017-07-18] MEDS ORDERED: ZALEPLON 5 MG CAPSULE PO PRN (15:53)
[2017-07-18] MEDS ORDERED: MORPHINE 2 MG/1 ML SYRINGE IV PRN (15:53)
[2017-07-18] MEDS ORDERED: MAGNESIUM SULF RIDER 2 GM in PREMIX 1 EACH IV PRN (15:53)
[2017-07-18] MEDS ORDERED: MAGNESIUM SULF RIDER 4 GM in PREMIX 1 EACH IV PRN (15:53)
[2017-07-18] MEDS ORDERED: ONDANSETRON 4 MG/2 ML VIAL IV PRN (15:53)
[2017-07-18] MEDS ORDERED: LACTULOSE 20 GM/30 ML UDCUP PO PRN (15:53)
[2017-07-18] MEDS ORDERED: ACETAMINOPHEN 325 MG TABLET PO PRN (15:53)
[2017-07-18] MEDS ORDERED: DOCUSATE SODIUM 100 MG CAPSULE PO PRN (15:53)
[2017-07-18] MEDS ORDERED: oxyCODONE ER 20 MG TABLET PO PRN (16:11)
[2017-07-18] MEDS ORDERED: DEXTROSE 50% 25 GM/50 ML VIAL IV PRN (18:03)
[2017-07-18] MEDS ORDERED: GLUCAGON 1 MG VIAL IM PRN (18:03)
[2017-07-18] MEDS ORDERED: INSULIN LISPRO PROTAMINE/LISPRO 75/25 100 UNIT/ML SUBCUT PRN (18:05)
[2017-07-18 18:23] LABS: Basophils % 0.8 % (0.0-0.8); Eosinophils # 0.1 10*3/uL (0.0-0.87); Eosinophils % 2.8 % (0.00-10.9); Hematocrit 36.9 VOL% (42.0-52.0); Hemoglobin 11.5 GM/DL (14.0-18.0); Immature Granulocytes % 0.2 %; Immature Granulocytes Absolute 0.01 #; Lymphocytes # 1.3 10*3/uL (1.4-4.0); Mean Corpuscular HGB Conc 31.2 GM/DL (32-36); Mean Corpuscular Hemoglobin 29 PG (27-34); Mean Corpuscular Volume 91.3 FL (87-102); Mean Platelet Volume 12.5 FL (9.6-12.0); Monocytes # 0.4 10*3/uL (0.11-0.8); Monocytes % 7.9 % (1.7-12.7); Neutrophils # 3.1 10*3/uL (1.4-7.4); Neutrophils % 62.3 % (38.7-73.9); Platelet Count 187 T/CUMM (130-400); Red Blood Count 4.04 MC/CUMM (3.8-5.5); Red Cell Distribution Width 15.9 % (9.3-17.3)
[2017-07-18 19:08] LABS: Troponin I Only 0.029 NG/ML (0.00-0.045)
[2017-07-18 19:13] LABS: Albumin 3.7 G/DL (3.4-5.0); Bilirubin,Total 0.8 MG/DL (0.2-1.0); Calcium 9.2 MG/DL (8.5-10.1); Osmolality,Calculated 274.5 MOS/KG (273-304); Potassium 3.3 MMOL/L (3.5-5.1); Thyroid Stimulating Hormone 0.771 uIU/ml (0.358-3.74); Total Protein 7.4 G/DL (6.4-8.3)
[2017-07-18] MEDS ORDERED: ALBUTEROL 1.25 MG/3 ML NEB RESP TX PRN ×2 (19:16→20:00)
[2017-07-18] MEDS: ALBUTEROL 1.25 MG/3 ML NEB RESP TX SCH (21:46)
[2017-07-18] MEDS: FUROSEMIDE 40 MG/4 ML VIAL IV SCH (21:57)
[2017-07-18] MEDS: PREGABALIN 75 MG CAPSULE PO SCH (21:58)
[2017-07-18] MEDS: PANTOPRAZOLE 40 MG TABLET PO SCH (21:58)
[2017-07-18] MEDS: oxyCODONE IR 5 MG TABLET PO SCH (21:59)
[2017-07-18] MEDS: GABAPENTIN 600 MG TABLET PO SCH (21:59)
[2017-07-18] MEDS: levETIRAcetam 500 MG TABLET PO SCH (21:59)
[2017-07-18] MEDS: INSULIN REGULAR 100 UNIT/ML SUBCUT SCH (22:00)
[2017-07-18 22:05] LABS: Troponin I Only 0.043 NG/ML (0.00-0.045)
[2017-07-18] MEDS: hydrOXYzine HCL 25 MG TABLET PO SCH (22:09)
[2017-07-19] MEDS: ALBUTEROL 1.25 MG/3 ML NEB RESP TX SCH ×4 (00:15→20:00)
[2017-07-19 01:18] LABS: Basophils % 0.7 % (0.0-0.8); Eosinophils # 0.3 10*3/uL (0.0-0.87); Eosinophils % 4.6 % (0.00-10.9); Hematocrit 33.6 VOL% (42.0-52.0); Hemoglobin 10.8 GM/DL (14.0-18.0); Immature Granulocytes % 0.4 %; Immature Granulocytes Absolute 0.02 #; Lymphocytes # 1.6 10*3/uL (1.4-4.0); Lymphocytes % 28.2 % (21.2-54.2); Mean Corpuscular HGB Conc 32.1 GM/DL (32-36); Mean Corpuscular Hemoglobin 29 PG (27-34); Mean Corpuscular Volume 89.6 FL (87-102); Mean Platelet Volume 13.4 FL (9.6-12.0); Monocytes # 0.4 10*3/uL (0.11-0.8); Neutrophils # 3.4 10*3/uL (1.4-7.4); Neutrophils % 59.1 % (38.7-73.9); Platelet Count 186 T/CUMM (130-400); Red Blood Count 3.75 MC/CUMM (3.8-5.5); Red Cell Distribution Width 15.8 % (9.3-17.3); White Blood Count 5.7 T/CUMM (4-12)
[2017-07-19 01:49] LABS: Albumin 3.5 G/DL (3.4-5.0); Bilirubin,Total 0.6 MG/DL (0.2-1.0); Osmolality,Calculated 279.4 MOS/KG (273-304); Potassium 3.3 MMOL/L (3.5-5.1); Risk Ratio 2.42; Total Protein 6.8 G/DL (6.4-8.3); VLDL CHOLESTEROL 13.8 MG/DL
[2017-07-19 02:00] LABS: Troponin I Only 0.029 NG/ML (0.00-0.045)
[2017-07-19] MEDS: LEVOTHYROXINE 88 MCG TABLET PO SCH (06:30)
[2017-07-19] MEDS ORDERED: POTASSIUM CHLORIDE RIDER 10 MEQ in PREMIX 1 EACH IV PRN (08:19)
[2017-07-19] MEDS: oxyCODONE IR 5 MG TABLET PO SCH ×3 (08:38→21:34)
[2017-07-19] MEDS: PANTOPRAZOLE 40 MG TABLET PO SCH (08:43)
[2017-07-19] MEDS: PREGABALIN 75 MG CAPSULE PO SCH ×2 (08:43→21:34)
[2017-07-19] MEDS: TAMSULOSIN 0.4 MG CAPSULE PO SCH (08:43)
[2017-07-19] MEDS: levETIRAcetam 500 MG TABLET PO SCH ×2 (08:43→21:34)
[2017-07-19] MEDS: RAMIPRIL 5 MG CAPSULE PO SCH (08:43)
[2017-07-19] MEDS: ASPIRIN EC 325 MG TABLET PO SCH (08:43)
[2017-07-19] MEDS: ALLOPURINOL 300 MG TABLET PO SCH (08:43)
[2017-07-19] MEDS: INSULIN REGULAR 100 UNIT/ML SUBCUT SCH ×4 (08:44→21:33)
[2017-07-19] MEDS: FUROSEMIDE 40 MG/4 ML VIAL IV SCH ×2 (08:44→15:14)
[2017-07-19] MEDS: GABAPENTIN 600 MG TABLET PO SCH ×3 (08:45→21:34)
[2017-07-19] MEDS: hydrOXYzine HCL 25 MG TABLET PO SCH ×3 (08:45→21:34)
[2017-07-19] MEDS ORDERED: DEXTROSE 50% 25 GM/50 ML VIAL IV PRN (09:51)
[2017-07-19] MEDS ORDERED: GLUCAGON 1 MG VIAL IM PRN (09:51)
[2017-07-19] MEDS: POTASSIUM CHLORIDE 20 MEQ TABLET PO PRN ×2 (12:18→15:14)
[2017-07-19] MEDS ORDERED: SKIN HEALING OINT (AQUAPHOR) 50 GM TUBE TOP PRN (15:53)
[2017-07-19] MEDS ORDERED: HYDROCORTISONE 2.5% CREAM 30 GM TUBE TOP PRN (15:54)
[2017-07-19 16:04] LABS: Apearance,Urine CLEAR (Clear); Bilirubin,Urine Negative (Negative); Blood, Urine Negative (Negative); Glucose,Urine (UA) Negative (Negative); Ketones,Urine Negative (Negative); Nitrite,Urine Negative (Negative); Protein,Urine Negative; RBC,Urine <1 /HPF (0-4); Squamous Epithelial Cell,Urine Occasional /HPF (0-10); Urine Color Straw (Yellow); Urine Specific Gravity 1.005 (1.001-1.035); Urine Urobilinogen < 2.0 EU/DL (0.2-1.0); WBC,Urine 1 /HPF (0-6)
[2017-07-19 19:03] LABS: LDH,Body Fluid 507 U/L; Total Protein,Body Fluid 3.9 G/DL
[2017-07-19 19:26] LABS: Eosinophils,Pleural Fluid 10 %; Lymphocytes,Pleural Fluid 86 %; Monocytes,Pleural Fluid 2 %; Neutrophils,Pleural Fluid 2 %; RBC,Pleural Fluid 91 T/CUMM
[2017-07-20] MEDS: ALBUTEROL 1.25 MG/3 ML NEB RESP TX SCH ×4 (00:20→19:35)
[2017-07-20] MEDS: POTASSIUM CHLORIDE 20 MEQ TABLET PO PRN ×2 (02:26→04:33)
[2017-07-20] MEDS: LEVOTHYROXINE 88 MCG TABLET PO SCH (06:14)
[2017-07-20 06:19] LABS: Basophils % 0.5 % (0.0-0.8); Eosinophils # 0.4 10*3/uL (0.0-0.87); Hematocrit 34.3 VOL% (42.0-52.0); Hemoglobin 11.6 GM/DL (14.0-18.0); Immature Granulocytes % 0.4 %; Immature Granulocytes Absolute 0.02 #; Lymphocytes # 1.6 10*3/uL (1.4-4.0); Lymphocytes % 28.1 % (21.2-54.2); Mean Corpuscular HGB Conc 33.8 GM/DL (32-36); Mean Corpuscular Hemoglobin 30 PG (27-34); Mean Corpuscular Volume 87.3 FL (87-102); Mean Platelet Volume 13.7 FL (9.6-12.0); Monocytes # 0.4 10*3/uL (0.11-0.8); Monocytes % 6.8 % (1.7-12.7); Neutrophils # 3.3 10*3/uL (1.4-7.4); Neutrophils % 57.2 % (38.7-73.9); Platelet Count 200 T/CUMM (130-400); Red Blood Count 3.93 MC/CUMM (3.8-5.5); Red Cell Distribution Width 15.8 % (9.3-17.3); White Blood Count 5.7 T/CUMM (4-12)
[2017-07-20 06:49] LABS: Albumin 3.2 G/DL (3.4-5.0); Calcium 9.1 MG/DL (8.5-10.1); Osmolality,Calculated 280.3 MOS/KG (273-304); Potassium 3.5 MMOL/L (3.5-5.1); Total Protein 6.3 G/DL (6.4-8.3)
[2017-07-20] MEDS: INSULIN REGULAR 100 UNIT/ML SUBCUT SCH ×4 (09:07→23:25)
[2017-07-20] MEDS: RAMIPRIL 5 MG CAPSULE PO SCH (09:08)
[2017-07-20] MEDS: PREGABALIN 75 MG CAPSULE PO SCH ×2 (09:09→21:47)
[2017-07-20] MEDS: ALLOPURINOL 300 MG TABLET PO SCH (09:09)
[2017-07-20] MEDS: oxyCODONE IR 5 MG TABLET PO SCH ×3 (09:10→21:50)
[2017-07-20] MEDS: ASPIRIN EC 325 MG TABLET PO SCH (09:10)
[2017-07-20] MEDS: PANTOPRAZOLE 40 MG TABLET PO SCH (09:10)
[2017-07-20] MEDS: hydrOXYzine HCL 25 MG TABLET PO SCH ×3 (09:10→23:26)
[2017-07-20] MEDS: levETIRAcetam 500 MG TABLET PO SCH ×2 (09:10→21:48)
[2017-07-20] MEDS: TAMSULOSIN 0.4 MG CAPSULE PO SCH (09:10)
[2017-07-20] MEDS: GABAPENTIN 600 MG TABLET PO SCH (09:11)
[2017-07-20] MEDS: FUROSEMIDE 40 MG/4 ML VIAL IV SCH ×2 (09:11→16:45)
[2017-07-20] MEDS ORDERED: guaiFENesin/DM ER 600-30 MG TABLET PO PRN (09:51)
[2017-07-20] MEDS: MIDODRINE 5 MG TABLET PO SCH ×3 (15:55→21:49)
[2017-07-21] MEDS: ALBUTEROL 1.25 MG/3 ML NEB RESP TX SCH ×3 (00:52→12:12)
[2017-07-21] MEDS: LEVOTHYROXINE 88 MCG TABLET PO SCH (06:45)
[2017-07-21 07:04] LABS: Calcium 8.7 MG/DL (8.5-10.1); Magnesium 2.1 MG/DL (1.8-2.4); Osmolality,Calculated 287.3 MOS/KG (273-304); Potassium 3.8 MMOL/L (3.5-5.1)
[2017-07-21] MEDS: INSULIN REGULAR 100 UNIT/ML SUBCUT SCH ×2 (08:45→12:19)
[2017-07-21] MEDS: hydrOXYzine HCL 25 MG TABLET PO SCH (08:50)
[2017-07-21] MEDS: RAMIPRIL 5 MG CAPSULE PO SCH (08:51)
[2017-07-21] MEDS: PANTOPRAZOLE 40 MG TABLET PO SCH (08:51)
[2017-07-21] MEDS: ALLOPURINOL 300 MG TABLET PO SCH (08:51)
[2017-07-21] MEDS: ASPIRIN EC 325 MG TABLET PO SCH (08:51)
[2017-07-21] MEDS: MIDODRINE 5 MG TABLET PO SCH ×2 (08:51→12:18)
[2017-07-21] MEDS: levETIRAcetam 500 MG TABLET PO SCH (08:51)
[2017-07-21] MEDS: oxyCODONE IR 5 MG TABLET PO SCH (08:52)
[2017-07-21] MEDS: TAMSULOSIN 0.4 MG CAPSULE PO SCH (08:52)
[2017-07-21] MEDS: PREGABALIN 75 MG CAPSULE PO SCH (08:52)
[2017-07-21] MEDS ORDERED: FUROSEMIDE 80 MG TABLET PO SCH (09:00)
[2017-07-21] MEDS: FUROSEMIDE 40 MG/4 ML VIAL IV SCH (09:06)
[2017-07-21 12:08] VITALS: BP 109/52
== END 2017-07-21 14:30 | disposition home health service (06) | DRG 187 ==
LOC: N.2E 17:17
PROVIDERS: ADMIT Internal Medicine Cardiovascular Disease; ATTEND Internal Medicine Cardiovascular Disease

== ENCOUNTER 2017-11-01 19:27 | Inpatient (IN) ==
[2017-11-01] MEDS ORDERED: DOCUSATE SODIUM 100 MG CAPSULE PO PRN (22:18)
[2017-11-01] MEDS ORDERED: ACETAMINOPHEN 325 MG TABLET PO PRN ×2 (22:18→23:55)
[2017-11-01] MEDS ORDERED: ONDANSETRON 4 MG/2 ML VIAL IV PRN ×2 (22:18→23:55)
[2017-11-01] MEDS ORDERED: oxyCODONE/ACETAMINOPHEN 5-325 MG TABLET PO PRN (22:28)
[2017-11-01] MEDS ORDERED: INSULIN LISPRO PROTAMINE/LISPRO 75/25 100 UNIT/ML SUBCUT PRN (22:28)
[2017-11-01] MEDS ORDERED: ENOXAPARIN 40 MG/0.4 ML SYRINGE SUBCUT SCH (22:30)
[2017-11-01] MEDS ORDERED: DEXTROSE 50% 25 GM/50 ML VIAL IV PRN (22:41)
[2017-11-01] MEDS ORDERED: GLUCAGON 1 MG VIAL IM PRN (22:41)
[2017-11-01] MEDS ORDERED: ALBUTEROL/IPRATROPIUM 3 ML NEB RESP TX PRN (22:43)
[2017-11-01] MEDS ORDERED: SODIUM CHLORIDE 0.9% 1,000 ML IV SCH (23:00)
[2017-11-02] MEDS ORDERED: VANCOMYCIN INJ 1,000 MG in SODIUM CHLORIDE 0.9% 250 ML IV SCH (01:00)
[2017-11-02 03:07] LABS: Basophils % 0.1 % (0.0-0.8); Hematocrit 34.3 VOL% (42.0-52.0); Hemoglobin 11.4 GM/DL (14.0-18.0); Immature Granulocytes % 0.9 %; Immature Granulocytes Absolute 0.08 #; Lymphocytes # 0.6 10*3/uL (1.4-4.0); Lymphocytes % 6.2 % (21.2-54.2); Mean Corpuscular HGB Conc 33.2 GM/DL (32-36); Mean Corpuscular Hemoglobin 30 PG (27-34); Mean Corpuscular Volume 89.8 FL (87-102); Mean Platelet Volume 13.1 FL (9.6-12.0); Monocytes # 0.8 10*3/uL (0.11-0.8); Monocytes % 8.5 % (1.7-12.7); Neutrophils # 7.7 10*3/uL (1.4-7.4); Neutrophils % 84.3 % (38.7-73.9); Platelet Count 192 T/CUMM (130-400); Red Blood Count 3.82 MC/CUMM (3.8-5.5); Red Cell Distribution Width 14.7 % (9.3-17.3); White Blood Count 9.1 T/CUMM (4-12)
[2017-11-02 03:08] LABS: Basophils % 0.2 % (0.0-0.8); Hematocrit 33.2 VOL% (42.0-52.0); Hemoglobin 11.6 GM/DL (14.0-18.0); Immature Granulocytes Absolute 0.09 #; Lymphocytes # 0.6 10*3/uL (1.4-4.0); Lymphocytes % 6.7 % (21.2-54.2); Mean Corpuscular HGB Conc 34.9 GM/DL (32-36); Mean Corpuscular Hemoglobin 30 PG (27-34); Mean Corpuscular Volume 87.1 FL (87-102); Monocytes # 0.7 10*3/uL (0.11-0.8); Monocytes % 7.7 % (1.7-12.7); Neutrophils # 7.8 10*3/uL (1.4-7.4); Neutrophils % 84.4 % (38.7-73.9); Platelet Count 184 T/CUMM (130-400); Red Blood Count 3.81 MC/CUMM (3.8-5.5); Red Cell Distribution Width 14.6 % (9.3-17.3); White Blood Count 9.2 T/CUMM (4-12)
[2017-11-02 03:42] LABS: Band Neutrophils 15 % (0-10); Lymphocytes 14 % (20-55); Platelet Estimate Normal; Segmented Neutrophils 65 % (50-85); Total Cells Counted 100
[2017-11-02 03:47] LABS: Albumin 2.8 G/DL (3.4-5.0); Bilirubin,Total 1.8 MG/DL (0.2-1.0); Calcium 8.4 MG/DL (8.5-10.1); Osmolality,Calculated 272.7 MOS/KG (273-304); Potassium 3.8 MMOL/L (3.5-5.1); Risk Ratio 1.59
[2017-11-02 03:51] LABS: Band Neutrophils 14 % (0-10); Lymphocytes 10 % (20-55); Segmented Neutrophils 65 % (50-85); Total Cells Counted 100
[2017-11-02 03:52] LABS: Platelet Estimate Normal
[2017-11-02] MEDS: PIPERACILLIN/TAZOBACTAM 3,375 MG in SODIUM CHLORIDE 0.9% 100 ML IV SCH ×3 (04:12→20:19)
[2017-11-02 04:25] LABS: Apearance,Urine CLEAR (Clear); Bacteria,Urine Occasional /HPF (Few); Bilirubin,Urine Negative (Negative); Blood, Urine Moderate mg/dL (Negative); Glucose,Urine (UA) Negative (Negative); Ketones,Urine Negative (Negative); Mucus,Urine Occasional /LPF (Occasional); Nitrite,Urine Negative (Negative); Protein,Urine Negative; RBC,Urine 3 /HPF (0-4); Squamous Epithelial Cell,Urine Occasional /HPF (0-10); Urine Color Yellow (Yellow); Urine Specific Gravity 1.004 (1.001-1.035); Urine Urobilinogen < 2.0 EU/DL (0.2-1.0); WBC,Urine 1 /HPF (0-6)
[2017-11-02] MEDS: LEVOTHYROXINE 75 MCG TABLET PO SCH (06:27)
[2017-11-02] MEDS: TAMSULOSIN 0.4 MG CAPSULE PO SCH (08:27)
[2017-11-02] MEDS: ENOXAPARIN 40 MG/0.4 ML SYRINGE SUBCUT SCH (08:27)
[2017-11-02] MEDS: PANTOPRAZOLE 40 MG TABLET PO SCH (08:27)
[2017-11-02] MEDS: FUROSEMIDE 40 MG/4 ML VIAL IV SCH ×2 (08:27→15:41)
[2017-11-02] MEDS: ALLOPURINOL 300 MG TABLET PO SCH (08:28)
[2017-11-02] MEDS: LOSARTAN 25 MG TABLET PO SCH (08:28)
[2017-11-02] MEDS: levETIRAcetam 500 MG TABLET PO SCH ×2 (08:28→20:20)
[2017-11-02] MEDS: ASPIRIN 325 MG TABLET PO SCH (08:28)
[2017-11-02] MEDS: PREGABALIN 75 MG CAPSULE PO SCH ×2 (08:28→20:20)
[2017-11-02] MEDS: INSULIN REGULAR 100 UNIT/ML SUBCUT SCH ×4 (08:38→20:22)
[2017-11-02] MEDS ORDERED: LACTULOSE 20 GM/30 ML UDCUP PO PRN (08:44)
[2017-11-02] MEDS ORDERED: FUROSEMIDE 40 MG/4 ML VIAL IV SCH (09:00)
[2017-11-02] MEDS: oxyCODONE IR 5 MG TABLET PO PRN ×2 (12:56→20:21)
[2017-11-02 13:10] LABS: Hepatitis A Ab IgM Quant 0.45 Index; Hepatitis A Ab IgM Result Negative (Negative); Hepatitis B Core IgM Quant 0.21 Index; Hepatitis B Surface Ag Quant < 0.10 Index; Hepatitis B Surface Ag Result Negative (Negative)
[2017-11-02 13:11] LABS: Hepatitis B Core IgM Result Negative (Negative); Hepatitis C Virus Ab Quant 0.25 Index; Hepatitis C Virus Ab Result Negative (Negative)
[2017-11-02] MEDS: VANCOMYCIN INJ 1,000 MG in SODIUM CHLORIDE 0.9% 250 ML IV SCH (14:57)
[2017-11-03] MEDS ORDERED: FUROSEMIDE 40 MG/4 ML VIAL IV ONE (02:18)
[2017-11-03] MEDS: VANCOMYCIN INJ 1,000 MG in SODIUM CHLORIDE 0.9% 250 ML IV SCH (02:42)
[2017-11-03] MEDS: PIPERACILLIN/TAZOBACTAM 3,375 MG in SODIUM CHLORIDE 0.9% 100 ML IV SCH ×3 (03:46→18:17)
[2017-11-03 05:34] LABS: Hematocrit 32.9 VOL% (42.0-52.0); Hemoglobin 11.2 GM/DL (14.0-18.0); Red Blood Count 3.67 MC/CUMM (3.8-5.5); White Blood Count 5.6 T/CUMM (4-12)
[2017-11-03 05:35] LABS: Basophils % 0.4 % (0.0-0.8); Eosinophils % 0.4 % (0.00-10.9); Immature Granulocytes % 0.4 %; Immature Granulocytes Absolute 0.02 #; Lymphocytes # 0.7 10*3/uL (1.4-4.0); Lymphocytes % 12.3 % (21.2-54.2); Mean Corpuscular Hemoglobin 31 PG (27-34); Mean Corpuscular Volume 89.6 FL (87-102); Mean Platelet Volume 13.2 FL (9.6-12.0); Monocytes # 0.5 10*3/uL (0.11-0.8); Monocytes % 8.9 % (1.7-12.7); Neutrophils # 4.4 10*3/uL (1.4-7.4); Neutrophils % 77.6 % (38.7-73.9); Platelet Count 171 T/CUMM (130-400); Red Cell Distribution Width 14.9 % (9.3-17.3)
[2017-11-03] MEDS: LEVOTHYROXINE 75 MCG TABLET PO SCH (05:42)
[2017-11-03 06:01] LABS: Band Neutrophils 10 % (0-10); Hypochromasia 1+; Lymphocytes 13 % (20-55); Ovalocytes Slight; Platelet Estimate Normal; Segmented Neutrophils 68 % (50-85); Total Cells Counted 100
[2017-11-03 06:04] LABS: Albumin 2.4 G/DL (3.4-5.0); Bilirubin,Total 1.3 MG/DL (0.2-1.0); Calcium 8.2 MG/DL (8.5-10.1); Osmolality,Calculated 281.7 MOS/KG (273-304); Total Protein 5.7 G/DL (6.4-8.3)
[2017-11-03] MEDS: POTASSIUM CHLORIDE 20 MEQ/15 ML UDCUP PER TUBE PRN ×4 (06:17→18:57)
[2017-11-03] MEDS: oxyCODONE IR 5 MG TABLET PO PRN ×2 (08:18→20:43)
[2017-11-03] MEDS: ENOXAPARIN 40 MG/0.4 ML SYRINGE SUBCUT SCH (08:18)
[2017-11-03] MEDS: ASPIRIN 325 MG TABLET PO SCH (08:19)
[2017-11-03] MEDS: INSULIN REGULAR 100 UNIT/ML SUBCUT SCH ×4 (08:19→20:43)
[2017-11-03] MEDS: FUROSEMIDE 40 MG/4 ML VIAL IV SCH (08:19)
[2017-11-03] MEDS: ALLOPURINOL 300 MG TABLET PO SCH (08:20)
[2017-11-03] MEDS: PREGABALIN 75 MG CAPSULE PO SCH ×2 (08:20→20:43)
[2017-11-03] MEDS: PANTOPRAZOLE 40 MG TABLET PO SCH (08:20)
[2017-11-03] MEDS: TAMSULOSIN 0.4 MG CAPSULE PO SCH (08:20)
[2017-11-03] MEDS: LOSARTAN 25 MG TABLET PO SCH (08:20)
[2017-11-03] MEDS: levETIRAcetam 500 MG TABLET PO SCH ×2 (08:20→20:43)
[2017-11-03] MEDS ORDERED: POTASSIUM CHLORIDE 20 MEQ TABLET PO SCH (15:30)
[2017-11-03] MEDS: POTASSIUM CHLORIDE 20 MEQ/15 ML UDCUP PO SCH (16:51)
[2017-11-04] MEDS: PIPERACILLIN/TAZOBACTAM 3,375 MG in SODIUM CHLORIDE 0.9% 100 ML IV SCH (03:30)
[2017-11-04] MEDS: oxyCODONE IR 5 MG TABLET PO PRN ×2 (05:08→12:59)
[2017-11-04 05:30] LABS: Calcium 8.5 MG/DL (8.5-10.1); Osmolality,Calculated 278.8 MOS/KG (273-304)
[2017-11-04] MEDS: LEVOTHYROXINE 75 MCG TABLET PO SCH (05:30)
[2017-11-04] MEDS ORDERED: POLYETHYLENE GLYCOL POWDER 17 GM PACK PO SCH (09:00)
[2017-11-04] MEDS ORDERED: FUROSEMIDE 40 MG/4 ML VIAL IV SCH (09:00)
[2017-11-04] MEDS ORDERED: LEVOFLOXACIN 750 MG TABLET PO SCH (09:00)
[2017-11-04] MEDS: LOSARTAN 25 MG TABLET PO SCH (09:25)
[2017-11-04] MEDS: POTASSIUM CHLORIDE 20 MEQ/15 ML UDCUP PO SCH (09:25)
[2017-11-04] MEDS: TAMSULOSIN 0.4 MG CAPSULE PO SCH (09:25)
[2017-11-04] MEDS: PREGABALIN 75 MG CAPSULE PO SCH (09:26)
[2017-11-04] MEDS: PANTOPRAZOLE 40 MG TABLET PO SCH (09:26)
[2017-11-04] MEDS: levETIRAcetam 500 MG TABLET PO SCH (09:26)
[2017-11-04] MEDS: ASPIRIN 325 MG TABLET PO SCH (09:26)
[2017-11-04] MEDS: FUROSEMIDE 80 MG TABLET PO SCH ×2 (09:26→09:27)
[2017-11-04] MEDS: ALLOPURINOL 300 MG TABLET PO SCH (09:26)
[2017-11-04] MEDS: ENOXAPARIN 40 MG/0.4 ML SYRINGE SUBCUT SCH (09:26)
[2017-11-04] MEDS: INSULIN REGULAR 100 UNIT/ML SUBCUT SCH ×3 (09:27→15:55)
[2017-11-04 16:52] VITALS: BP 128/63
== END 2017-11-04 17:39 | disposition home health service (06) | DRG 291 ==
LOC: EDUNIT# → N.ED 19:27 → N.EDINP 21:42 → N.ICU 11-02 00:24 → N.TELEN 11-03 20:15
PROVIDERS: ADMIT Internal Medicine; ATTEND Internal Medicine

== ENCOUNTER 2017-11-15 18:08 | Observation (INO) ==
[2017-11-15] MEDS ORDERED: ONDANSETRON 4 MG/2 ML VIAL IV STA (18:31)
[2017-11-15] MEDS ORDERED: ALBUTEROL/IPRATROPIUM 3 ML NEB RESP TX STA (18:31)
[2017-11-15 19:52] LABS: Basophils % 0.6 % (0.0-0.8); Eosinophils # 0.1 10*3/uL (0.0-0.87); Eosinophils % 1.7 % (0.00-10.9); Hematocrit 36.2 VOL% (42.0-52.0); Hemoglobin 11.5 GM/DL (14.0-18.0); Immature Granulocytes % 0.4 %; Immature Granulocytes Absolute 0.02 #; Lymphocytes # 1.4 10*3/uL (1.4-4.0); Lymphocytes % 27.1 % (21.2-54.2); Mean Corpuscular HGB Conc 31.8 GM/DL (32-36); Mean Corpuscular Hemoglobin 30 PG (27-34); Mean Platelet Volume 10.5 FL (9.6-12.0); Monocytes # 0.4 10*3/uL (0.11-0.8); Monocytes % 6.9 % (1.7-12.7); Neutrophils # 3.3 10*3/uL (1.4-7.4); Neutrophils % 63.3 % (38.7-73.9); Platelet Count 343 T/CUMM (130-400); Red Blood Count 3.85 MC/CUMM (3.8-5.5); Red Cell Distribution Width 14.7 % (9.3-17.3); White Blood Count 5.2 T/CUMM (4-12)
[2017-11-15 20:01] LABS: PT Patient Result 10.3 SECS; Partial Thromboplastin Time 28.2 SECS (0-40)
[2017-11-15 20:17] LABS: Alanine Aminotransferase 27 U/L (16-61); Albumin 2.7 G/DL (3.4-5.0); Alkaline Phosphatase 165 U/L (45-117); Aspartate Amino Transferase 19 U/L (0-37); Blood Urea Nitrogen 10 MG/DL (7-18); Glucose 142 MG/DL (74-106); Potassium 4.2 MMOL/L (3.5-5.1); Sodium 136 MMOL/L (136-145); Total Protein 7.4 G/DL (6.4-8.3); Troponin I Only < 0.015 NG/ML (0.00-0.045)
[2017-11-15 20:37] LABS: Apearance,Urine CLEAR (Clear); Bilirubin,Urine Negative (Negative); Blood, Urine Negative (Negative); Glucose,Urine (UA) Negative (Negative); Ketones,Urine Negative (Negative); Mucus,Urine Occasional /LPF (Occasional); Nitrite,Urine Negative (Negative); Protein,Urine Negative; RBC,Urine <1 /HPF (0-4); Urine Color Yellow (Yellow); Urine Specific Gravity 1.009 (1.001-1.035); Urine Urobilinogen < 2.0 EU/DL (0.2-1.0)
[2017-11-15 20:41] LABS: Barbiturates Screen,Urine Negative (Negative); Benzodiazepines Screen,Urine Negative (Negative); Cannabinoid Screen,Urine Negative (Negative); Opiate Screen,Urine Positive (Negative); Phencyclidine Screen,Urine Negative (Negative)
[2017-11-16] MEDS ORDERED: ONDANSETRON 4 MG/2 ML VIAL IV PRN (00:44)
[2017-11-16] MEDS ORDERED: GLUCAGON 1 MG VIAL IM PRN (00:44)
[2017-11-16] MEDS ORDERED: ALLOPURINOL 300 MG TABLET PO SCH (00:44)
[2017-11-16] MEDS ORDERED: INSULIN LISPRO PROTAMINE/LISPRO 75/25 100 UNIT/ML SUBCUT PRN (00:44)
[2017-11-16] MEDS ORDERED: DEXTROSE 50% 25 GM/50 ML VIAL IV PRN (00:44)
[2017-11-16] MEDS ORDERED: MORPHINE 4 MG/1 ML VIAL IV PRN (00:44)
[2017-11-16] MEDS ORDERED: ALBUMIN 25% 50 GM in PREMIX 1 EACH IV ONE (01:00)
[2017-11-16] MEDS: levETIRAcetam 500 MG TABLET PO SCH ×2 (01:17→08:59)
[2017-11-16] MEDS: PREGABALIN 75 MG CAPSULE PO SCH ×2 (01:17→08:59)
[2017-11-16] MEDS ORDERED: LEVOTHYROXINE 75 MCG TABLET PO SCH (06:00)
[2017-11-16] MEDS ORDERED: LEVOTHYROXINE 50 MCG TABLET PO SCH (06:30)
[2017-11-16 08:53] VITALS: BP 141/72
[2017-11-16] MEDS ORDERED: ASPIRIN 325 MG TABLET PO SCH (09:00)
[2017-11-16] MEDS ORDERED: FUROSEMIDE 80 MG TABLET PO SCH (09:00)
[2017-11-16] MEDS ORDERED: PANTOPRAZOLE 40 MG TABLET PO SCH (09:00)
[2017-11-16] MEDS ORDERED: TAMSULOSIN 0.4 MG CAPSULE PO SCH (09:00)
[2017-11-16] MEDS ORDERED: DOCUSATE SODIUM 100 MG CAPSULE PO SCH (09:00)
[2017-11-16] MEDS: INSULIN REGULAR 100 UNIT/ML SUBCUT SCH ×2 (10:40→13:02)
== END 2017-11-16 14:45 | disposition home or self-care (01) ==
LOC: EDBD → EDUNIT# → N.ED 18:08 → N.EDINP 18:08 → N.4E 23:54
PROVIDERS: ADMIT Internal Medicine Geriatric Medicine; ATTEND Internal Medicine Geriatric Medicine